=== PATIENT | female | born 1995 | race Caucasian/White ===

== ENCOUNTER → 2018-07-06 09:16 | Outpatient (CLI) | payer OTHER, SELFPAY ==
[2018-07-06 09:37] LABS: Add Manual Diff / Slide Review NO; Basophils Percent Auto 0.2 % (0-2); Eosinophils Percent Auto 1.1 % (2-4); Hematocrit 39.2 % (36-46); Hemoglobin 13.4 g/dL (12.0-16.0); Lymphocytes Percent Auto 33.6 % (25-40); Mean Corpuscular HGB Conc 34.1 % (30-36); Mean Corpuscular Hemoglobin 28.7 PG (26-34); Mean Corpuscular Volume 84.3 fL (80-100); Monocytes Percent Auto 7.2 % (3-14); Neutrophils Absolute Auto 4600 /uL (3000-5900); Neutrophils Percent Auto 57.9 % (50-75); Platelet Count 228 X10^3/uL (150-400); Red Blood Cell Count 4.65 X10^6/uL (4.0-5.2)
[2018-07-06 09:46] LABS: BUN Creatinine Ratio 17.1 (6-22); Blood Urea Nitrogen 12 mg/dL (7-17); Calcium 9.6 mg/dL (8.4-10.2); Carbon Dioxide 27 mmol/L (22-32); Chloride 100 mmol/L (98-107); Estimated Glomerular Filt Rate > 60.0 mL/min (>60); Glucose 103 mg/dL (70-100); HEMOLYSIS < 15 (0-50); Sodium 141 mmol/L (137-145)
[2018-07-06 10:44] LABS: Thyroid Stimulating Hormone 0.54 uIU/mL (0.47-4.68)
== END ==
PROVIDERS: PCP Family Medicine; Visit Provider Family Medicine
DX: R53.83 Other fatigue (principal)
CPT/HCPCS: 36415; 80048; 84443; 85025

== ENCOUNTER 2018-07-20 07:05 | Emergency (ER) | payer OTHER, SELFPAY ==
[2018-07-20 07:10] VITALS: BP 100/47; PULSE 75; RESP 24; TEMP 36.4; O2SAT 100; BMI 36.6
[2018-07-20] MEDS: ONDANSETRON 4 MG/2 ML INJ IV (07:20)
[2018-07-20] MEDS: KETOROLAC 60 MG/2 ML VIAL 30 MG IV (07:20)
[2018-07-20] MEDS: LORazepam 2 MG/ML SYRINGE 0.5 MG IV (07:31)
[2018-07-20 07:42] LABS: Add Manual Diff / Slide Review NO; Basophils Percent Auto 0.3 % (0-2); Hematocrit 40.3 % (36-46); Hemoglobin 13.7 g/dL (12.0-16.0); Lymphocytes Percent Auto 30.8 % (25-40); Mean Corpuscular HGB Conc 33.9 % (30-36); Mean Corpuscular Hemoglobin 28.9 PG (26-34); Mean Corpuscular Volume 85.3 fL (80-100); Monocytes Percent Auto 4.3 % (3-14); Neutrophils Absolute Auto 5700 /uL (3000-5900); Neutrophils Percent Auto 63.6 % (50-75); Platelet Count 226 X10^3/uL (150-400); Red Blood Cell Count 4.73 X10^6/uL (4.0-5.2); Red Cell Distribution Width 13.3 % (11.6-14.8); White Blood Cell Count 8.9 X10^3/uL (4.5-11.0)
[2018-07-20 07:52] LABS: BUN Creatinine Ratio 12.5 (6-22); Blood Urea Nitrogen 10 mg/dL (7-17); Calcium 9.9 mg/dL (8.4-10.2); Carbon Dioxide 22 mmol/L (22-32); Chloride 105 mmol/L (98-107); Estimated Glomerular Filt Rate > 60.0 mL/min (>60); Glucose 135 mg/dL (70-100); HEMOLYSIS < 15 (0-50); Potassium 3.7 mmol/L (3.4-5.1); Sodium 143 mmol/L (137-145)
[2018-07-20] MEDS: HYDROMORPHONE 1 MG INJ 0.5 MG IV (08:10)
--- NOTE | 2018-07-20 08:10 | ED_ITS ---
HPI - Female Genitourinary General Chief complaint: Urogenital-Female Stated complaint: Renal Stones Time Seen by Provider: 07/20/18 07:15 Source: patient Mode of arrival: ambulatory Limitations: no limitations History of Present Illness HPI Narrative: Patient is a 23-year-old female presents with left flank pain it has been ongoing for 1 hr it woke her from her sleep. She does have a history of kidney stones this feels similar. However the pain is much worse. She feels nauseous at times no vomiting. She has not had fever. She was feeling well in the evening. She did receive 10 mg of morphine by EMS. She continues to be in severe pain. Related Data Previous Rx's Medication Instructions Recorded hydrocodone 5 mg-acetaminophen 325 1 - 2 tab PO Q6-8H PRN #30 tab 03/30/18 mg tablet dextroamphetamine-amphetamine 10 10 mg PO DAILY PRN #30 tab 07/06/18 mg tablet lisdexamfetamine 60 mg capsule 60 mg PO QDAY #30 cap 07/06/18 Allergies Allergy/AdvReac Type Severity Reaction Status Date / Time omeprazole [OMEPRAZOLE] Allergy Severe STOMACH Verified 07/20/18 07:21 CRAMPING, NAUSEA latex [LATEX] Allergy Mild Verified 07/20/18 07:21 nickel [NICKEL] Allergy Mild Verified 07/20/18 07:21 paper tape AdvReac Mild itchy Uncoded 07/20/18 07:21 Review of Systems Review of Systems All systems reviewed & are unremarkable except as noted in HPI and below Constitutional Denies chills, Denies fever(s), Denies lethargy and Denies weakness Cardiovascular Denies chest pain, Denies irregular heart rhythm, Denies lightheadedness, Denies palpitations, Denies dyspnea, Denies dyspnea on exertion and Denies orthopnea Respiratory Denies cough, Denies dyspnea, Denies dyspnea on exertion and Denies wheezing Gastrointestinal Gastrointestinal: Denies abdominal pain, Denies change in bowel habits, Denies diarrhea, Denies nausea and Denies vomiting Musculoskeletal Denies back pain, Denies muscle weakness, Denies numbness and Denies tingling Integumentary/Breasts Denies pruritus, Denies erythema, Denies rash and Denies wounds Neurologic Denies numbness, Denies tingling and Denies weakness Endocrine Denies palpitations Allergic/Immunologic Denies wheezing [facility] Medical History Migraines (Chronic) Acne (Chronic) Anxiety (Chronic 03/2006) Chronic headaches (Chronic) Depression (Chronic 05/04/07) Factor V Leiden (Chronic) Hip pain (Chronic 2006) Hip tendonitis (Chronic 2006) Keratosis pilaris (Chronic 01/21/09) Kidney stones (Resolved 02/26/13) Surgical History Anesthesia (Resolved) History of third molar tooth extraction (Resolved) Family History Father Age: 60 Hypertension High cholesterol Grandfather Cancer Lung cancer Smoking Grandmother No problems noted. Mother No problems noted. Grandfather Complication of surgery Grandmother No problems noted. Social History Smoking Status: Never smoker Exam Initial Vital Signs Initial Vital Signs: Vital Signs Temperature 97.6 F 07/20/18 07:10 Pulse Rate 75 07/20/18 07:10 Respiratory Rate 24 07/20/18 07:10 Blood Pressure 100/47 L 07/20/18 07:10 Pulse Oximetry 100 07/20/18 07:10 GENERAL: In pain, can't get comfortable crying HEENT: Head atraumatic,EOMI, pupils reactive, CARDIOVASCULAR: Regular rate and rhythm without murmurs, rubs or gallops. RESPIRATORY: Breath sounds equal bilaterally, no wheezes rales or rhonchi. ABDOMEN: Soft, nontender. Normoactive bowel sounds all 4 quadrants. No guarding or rebound. : Left flank pain EXTREMITIES: Normal range of motion, no clubbing or edema. Neurovascularly intact NEUROLOGICAL: Alert and oriented x4.Normal gait and speech SKIN: Warm, dry, no laceration, no petechiae, no rashes or lesions. Course Orders Ordered: ED Orders 07/20/18 07:30 Basic Metabolic Panel Stat Complete Blood Count AUTO DIFF Stat Test Serum,Qual Stat 07/20/18 09:06 CT kidney ureter bladder (KUB) Stat 07/20/18 10:17 Urine Microscopic Stat Discontinued Medications Hydromorphone HCl (Dilaudid) 0.5 mg IV NOW ONE Stop: 07/20/18 08:05 Last Admin: 07/20/18 08:10 Dose: 0.5 mg Sodium Chloride (Normal Saline 0.9%) 1,000 mls @ 1,000 mls/hr IV BOLUS ONE Stop: 07/20/18 09:03 Last Infusion: 07/20/18 09:26 Dose: 0 mls/hr Admin: 07/20/18 08:24 Dose: 1,000 mls/hr Lidocaine HCl 7.5 ml/ Sodium (Chloride) 57.5 mls @ 345 mls/hr IV NOW ONE Stop: 07/20/18 08:37 Last Infusion: 07/20/18 09:11 Dose: 0 mls/hr Admin: 07/20/18 08:53 Dose: 345 mls/hr Ketorolac Tromethamine (Toradol) 30 mg IV NOW ONE Stop: 07/20/18 07:06 Last Admin: 07/20/18 07:20 Dose: 30 mg Lorazepam (Ativan) 0.5 mg IV NOW ONE Stop: 07/20/18 07:28 Last Admin: 07/20/18 07:31 Dose: 0.5 mg Ondansetron HCl (Zofran) 4 mg IV NOW ONE Stop: 07/20/18 07:06 Last Admin: 07/20/18 07:20 Dose: 4 mg Vital Signs - 8 hr 07/20/18 07:10 07/20/18 10:00 07/20/18 10:38 Temperature 97.6 F Pulse Rate 75 56 L 68 Respiratory Rate 24 16 Blood Pressure 100/47 L Blood Pressure [Left Arm] 101/77 111/68 Pulse Oximetry 100 95 100 07/20/18 10:45 Temperature 98.0 F Pulse Rate Respiratory Rate Blood Pressure Blood Pressure [Left Arm] Pulse Oximetry MDM - Female Genitourinary Lab Data Attestation: I reviewed the patient's lab results. Result diagrams: 07/20/18 07:30 07/20/18 07:30 Lab Results 07/20/18 07/20/18 07/20/18 Range/Units 07:30 07:30 07:30 WBC 8.9 (4.5-11.0) X10^3/uL RBC 4.73 (4.0-5.2) X10^6/uL Hgb 13.7 (12.0-16.0) g/dL Hct 40.3 (36-46) % MCV 85.3 (80-100) fL MCH 28.9 (26-34) PG MCHC 33.9 (30-36) % RDW 13.3 (11.6-14.8) % Plt Count 226 (150-400) X10^3/uL Neut % (Auto) 63.6 (50-75) % Lymph % (Auto) 30.8 (25-40) % [place] % (Auto) 4.3 (3-14) % Eos % (Auto) 1.0 L (2-4) % Baso % (Auto) 0.3 (0-2) % Neut # (Auto) 5700 (5571-5339) /uL Sodium 143 (137-145) mmol/L Potassium 3.7 (3.4-5.1) mmol/L Chloride 105 (98-107) mmol/L Carbon Dioxide 22 (22-32) mmol/L BUN 10 (7-17) mg/dL Creatinine 0.80 (0.52-1.04) mg/dL Estimated GFR > 60.0 (>60) mL/min BUN/Creatinine Ratio 12.5 (6-22) Glucose 135 H (70-100) mg/dL Calcium 9.9 (8.4-10.2) mg/dL Serum , Qual Negative (Negative) Urine RBC (0-5/HPF) Urine WBC (0-5/HPF) Ur Squamous Epith Cells Amorphous Sediment Urine Bacteria (None) Urine Mucus (Negative) Ur Culture Indicated? Micro UA Comment 07/20/18 Range/Units 10:17 WBC (4.5-11.0) X10^3/uL RBC (4.0-5.2) X10^6/uL Hgb (12.0-16.0) g/dL Hct (36-46) % MCV (80-100) fL MCH (26-34) PG MCHC (30-36) % RDW (11.6-14.8) % Plt Count (150-400) X10^3/uL Neut % (Auto) (50-75) % Lymph % (Auto) (25-40) % [place]clean % (Auto) (3-14) % Eos % (Auto) (2-4) % Baso % (Auto) (0-2) % Neut # (Auto) (6309-7572) /uL Sodium (137-145) mmol/L Potassium (3.4-5.1) mmol/L Chloride (98-107) mmol/L Carbon Dioxide (22-32) mmol/L BUN (7-17) mg/dL Creatinine (0.52-1.04) mg/dL Estimated GFR (>60) mL/min BUN/Creatinine Ratio (6-22) Glucose (70-100) mg/dL Calcium (8.4-10.2) mg/dL Serum , Qual (Negative) Urine RBC 5-10/hpf H (0-5/HPF) Urine WBC 10-30/hpf H (0-5/HPF) Ur Squamous Epith Cells 10-30 /hpf H Amorphous Sediment 2+ Urine Bacteria None seen (None) Urine Mucus 2+ H (Negative) Ur Culture Indicated? Cult not indicated Micro UA Comment Not Reportable Urine Dip Bedside Urine Glucose Negative Bedside Urine Bilirubin - Negative Bedside Urine Ketone ++ 40 Urine Specific [place] 1.030 Bedside Urine Occult Blood +++ Bedside Urine pH 6.0 Bedside Urine Protein + 30 Bedside Urine Urobilinogen - Negative Bedside Urine Nitrite - Negative Bedside Urine Leukocytes + [address] scan - abdomen: Radiologist's impression: PROCEDURE: CT KIDNEY URETER BLADDER (KUB) INDICATIONS: left flank pain TECHNIQUE: Noncontrast 5 mm thick sections acquired from the diaphragms to the symphysis. 5 mm thick coronal and sagittal reformats were then performed. For radiation dose reduction, the following was used: automated exposure control, adjustment of mA and/or kV according to patient size. COMPARISON: None. FINDINGS: Image quality: Excellent. Lung bases: Lung bases are clear. Heart size is normal. Urinary system: Both kidneys are normal in size. The 3 mm calculus is evident within the mid right kidney. There may also be punctate calculi on the left. There is borderline hydronephrosis on the left. There is no hydronephrosis on the right. No ureteral calculi are evident, bilaterally. No perinephric edema is appreciated. The urinary bladder is decompressed and subsequently not well evaluated. No bladder calculi are identified. Other solid organs: Liver is normal in size. Gallbladder is not enlarged or inflamed. Pancreas is normal in contours. Spleen is normal in size. No adrenal nodules. Peritoneum and bowel: Unenhanced bowel loops demonstrate normal wall thickness and caliber. No free fluid or air. No loculated fluid collections are evident. Moderate residual stool is seen within the proximal colon. The appendix is well- visualized and normal. Nodes and vessels: No retroperitoneal or mesenteric adenopathy by size criteria. Aorta and inferior vena cava are normal in caliber. Pelvis: No free pelvic fluid. No inguinal hernias or adenopathy. The uterus and ovaries are not enlarged. No loculated fluid collections or free air is evident. Bones: No suspicious bony lesions. No vertebral body compression fractures. IMPRESSION: 1. Mild left-sided hydronephrosis and prominence of the left ureter may be related to a recently passed left renal calculus. No ureteral calculi are evident. 2. Nonobstructing right renal calculus. Dictated by: Alex Khan M.D. on 07/20/2018 at 8:18 MDM Narrative Medical decision making narrative: Patient continues to be in severe pain cannot get comfortable. She is given Toradol. Continues to be in pain. She is given Ativan could she also seems to be quite a bit anxious. The Ativan does seem to help however her pain returned is given Dilaudid. I discussed with both mom and patient would like to try to avoid CT due to radiation. Her pain is on the left side not likely to be appendicitis. Or other causes However she continues to be in quite severe pain. CT ordered The pain is much better after lidocaine she has actually not had any further episodes. CT shows a likely recently passed stone she also has blood in her urine consistent with a kidney stone. No sign of infection. Discharge Plan Departure Patient Disposition: Home Clinical Impression: Kidney stone on left side Discharge Date/Time: 07/20/18 10:45 Interventions: ED Discharge Assessment Last Done: 07/20/18 10:45 Instructions: DI for Kidney Stones Activity Restrictions/Additional Instructions: *You have been diagnosed with kidney stone *What to do: It looks as though he recently passed a kidney stone. You can expect to have some mild flank pain recommend seeing a urologist to determine cause of kidney stone *Continue to take medications as directed Motrin 800 mg every 8 hr needed *Follow up with your primary care provider in 2-3 days *Return to ER if you should have fever, uncontrolled pain or any new, worsening or concerning symptoms Prescriptions: No Action dextroamphetamine-amphetamine 10 mg tablet 10 mg PO DAILY PRN (Reason: Inattention) Qty: 30 RF: 0 lisdexamfetamine [Vyvanse] 60 mg capsule 60 mg PO QDAY Qty: 30 RF: 0 hydrocodone-acetaminophen 5-325 mg tablet 1 - 2 tab PO Q6-8H PRN (Reason: headache) Qty: 30 RF: 0 Referrals: Faith Cyr MD [Primary Care Provider] -
[2018-07-20] MEDS: SODIUM CHLORIDE 0.9% 1,000 ML 1000 ML IV (08:24)
--- NOTE | 2018-07-20 08:40 | PC.NURSE ---
Pt in room, yelling loudly since arrival about pain. Meds given with brief pain relief. Meds IVPB ordered
[2018-07-20 08:43] LABS: Pregnancy Test Serum,Qual Negative (Negative)
[2018-07-20] MEDS: SODIUM CHLORIDE 0.9% IV (08:53)
[2018-07-20] MEDS: LIDOCAINE 2% IV (08:53)
--- NOTE | 2018-07-20 09:06 | DI.CT.S_ITS ---
PROCEDURE: CT KIDNEY URETER BLADDER (KUB) INDICATIONS: left flank pain TECHNIQUE: Noncontrast 5 mm thick sections acquired from the diaphragms to the symphysis. 5 mm thick coronal and sagittal reformats were then performed. For radiation dose reduction, the following was used: automated exposure control, adjustment of mA and/or kV according to patient size. COMPARISON: None. FINDINGS: Image quality: Excellent. Lung bases: Lung bases are clear. Heart size is normal. Urinary system: Both kidneys are normal in size. The 3 mm calculus is evident within the mid right kidney. There may also be punctate calculi on the left. There is borderline hydronephrosis on the left. There is no hydronephrosis on the right. No ureteral calculi are evident, bilaterally. No perinephric edema is appreciated. The urinary bladder is decompressed and subsequently not well evaluated. No bladder calculi are identified. Other solid organs: Liver is normal in size. Gallbladder is not enlarged or inflamed. Pancreas is normal in contours. Spleen is normal in size. No adrenal nodules. Peritoneum and bowel: Unenhanced bowel loops demonstrate normal wall thickness and caliber. No free fluid or air. No loculated fluid collections are evident. Moderate residual stool is seen within the proximal colon. The appendix is well-visualized and normal. Nodes and vessels: No retroperitoneal or mesenteric adenopathy by size criteria. Aorta and inferior vena cava are normal in caliber. Pelvis: No free pelvic fluid. No inguinal hernias or adenopathy. The uterus and ovaries are not enlarged. No loculated fluid collections or free air is evident. Bones: No suspicious bony lesions. No vertebral body compression fractures. IMPRESSION: 1. Mild left-sided hydronephrosis and prominence of the left ureter may be related to a recently passed left renal calculus. No ureteral calculi are evident. 2. Nonobstructing right renal calculus. Dictated by: Alex Khan M.D. on 07/20/2018 at 8:18 Approved by: Alex Khan M.D. on 07/20/2018 at 8:30
[2018-07-20 10:00] VITALS: BP 101/77; PULSE 56; RESP 16; O2SAT 95
[2018-07-20 10:22] LABS: Bacteria Urine None Seen
[2018-07-20 10:33] LABS: Amorphous Sediment Urine 2+; Culture Indicated Urine Cult Not Indicated; Mucus Urine 2+ (Negative); RBC Urine 5-10/HPF (0-5/HPF); Squamous Epithelial Cell Urine 10-30 /HPF; WBC Urine 10-30/HPF (0-5/HPF)
[2018-07-20 10:38] VITALS: BP 111/68; PULSE 68; O2SAT 100
[2018-07-20 10:45] VITALS: TEMP 36.7
== END 2018-07-20 10:45 | disposition home or self-care (01) ==
PROVIDERS: Emergency Provider Emergency Medicine; PCP Family Medicine
DX: N20.0 Calculus of kidney (principal)
CPT/HCPCS: 36415; 74176; 80048; 81003; 81015; 84703; 85025; 96361; 96365; 96375; 99283; 99284; J1170; J1885; J2060; J2405

== ENCOUNTER → 2018-08-12 14:15 | Outpatient (CLI) | payer OTHER, SELFPAY ==
[2018-08-12 15:56] LABS: Vitamin D 25 Hydroxy (D3) 60.3 ng/mL (30.0-100.0)
[2018-08-12 16:12] LABS: Testosterone 65.8 ng/dL (5.71-77.0)
[2018-08-12 16:28] LABS: Vitamin B12 645 pg/mL (239-931)
== END ==
PROVIDERS: PCP Family Medicine; Visit Provider Family Medicine
DX: L68.9 Hypertrichosis, unspecified (principal); F32.9 Major depressive disorder, single episode, unspecified; F41.9 Anxiety disorder, unspecified; G43.909 Migraine, unspecified, not intractable, without status migrainosus; R53.83 Other fatigue
CPT/HCPCS: 36415; 82306; 82607; 84403

== ENCOUNTER 2019-04-18 08:30 | Emergency (ER) | payer OTHER, MEDICAID, SELFPAY ==
[2019-04-18 08:44] VITALS: BP 140/81; PULSE 107; RESP 16; TEMP 36.6; O2SAT 100; BMI 33.7
--- NOTE | 2019-04-18 08:45 | ED.FEMALEGU ---
HPI - Female Genitourinary General Chief complaint: Urogenital-Female Stated complaint: Thinks she has bad kidney infection Time Seen by Provider: 04/18/19 08:45 Source: patient and family (Father) Mode of arrival: ambulatory Limitations: no limitations History of Present Illness HPI Narrative: This is a 24-year-old female comes to the emergency department with complaint of bilateral flank pain and suprapubic pain. Patient thinks that she might have a bladder infection. States she has had kidney stones in the past kind of started on the right side but now it is on both sides. She states that this pain is little bit different than when she had kidney stones. She has not had any fevers, she denies any nausea or vomiting. She denies any new changes to bowel movements but chronically has diarrhea secondary to metformin which she takes for PCOS. Patient has noticed that she has increased pain when she urinates, she has not noticed any sense of frequency or incomplete voiding. She denies any new vaginal bleeding or discharge. She takes Vyvanse and medications for mental health but denies any other medical issues. Denies any prior surgeries. She does smoke, drinks alcohol and denies any recent illicit but occasional THC. Related Data Home Medications Medication Instructions Recorded Confirmed multivitamin with minerals-folic mcg PO tab 11/03/18 04/04/19 acid 200 mcg chewable tablet cholecalciferol (vitamin D3) 2,000 6,000 unit PO DAILY cap 04/04/19 04/04/19 unit capsule Previous Rx's Medication Instructions Recorded triamcinolone acetonide 0.1 % 1 applictn TOP BID #15 gram 09/27/18 topical ointment dextroamphetamine-amphetamine 10 See Rx Instructions .ROUTE 02/28/19 mg tablet .COMPLEX PRN #30 tab lisdexamfetamine 60 mg capsule 60 mg PO QDAY #30 cap 02/28/19 hydrocodone 5 mg-acetaminophen 325 1 - 2 tab PO Q6-8H PRN #10 tab 03/21/19 mg tablet clonidine HCl 0.1 mg tablet 0.1 mg PO BEDTIME #30 tab 04/04/19 metformin 500 mg tablet 500 mg PO BID #180 tab 04/11/19 ciprofloxacin HCl 500 mg PO BID #20 tab 04/18/19 Allergies Allergy/AdvReac Type Severity Reaction Status Date / Time omeprazole [OMEPRAZOLE] Allergy Severe STOMACH Verified 03/21/19 15:24 CRAMPING, NAUSEA latex [LATEX] Allergy Mild Verified 03/21/19 15:24 nickel [NICKEL] Allergy Mild Verified 03/21/19 15:24 adhesive tape AdvReac Mild ITCHY - Verified 04/18/19 09:17 PAPER TAPE Review of Systems Review of Systems ROS Unobtainable: All systems reviewed & are unremarkable except as noted in HPI and below Constitutional Denies chills, Denies fever(s), Denies lethargy and Denies weakness Cardiovascular Denies chest pain and Denies dyspnea Respiratory Denies dyspnea Gastrointestinal Gastrointestinal: Reports abdominal pain (Suprapubic), Denies melena, Denies hematochezia, Denies change in bowel habits, Reports diarrhea (Chronically), Denies nausea and Denies vomiting Genitourinary Reports as per HPI, Denies abnormal menses, Denies abnormal vaginal bleeding, Denies hematuria, Reports dysuria, Reports pelvic pain, Reports flank pain (Right greater than left), Denies urinary incontinence, Denies urinary hesitancy, Denies urinary urgency, Denies vaginal discharge and Denies vaginal odor Integumentary/Breasts Denies rash Neurologic Denies weakness [facility] Medical History Migraines (Chronic) Acne (Chronic) Anxiety (Chronic 03/2006) Chronic headaches (Chronic) Depression (Chronic 05/04/07) Factor V Leiden (Chronic) Hip pain (Chronic 2006) Hip tendonitis (Chronic 2006) Keratosis pilaris (Chronic 01/21/09) Kidney stones (Resolved 02/26/13) Surgical History Anesthesia (Resolved) History of third molar tooth extraction (Resolved) Family History Father Age: 61 Hypertension High cholesterol Grandfather Cancer Lung cancer Smoking Grandmother No problems noted. Mother No problems noted. Grandfather Complication of surgery Grandmother No problems noted. Social History Smoking Status: Current some day smoker alcohol intake: current substance use type: does not use Family History Father Age: 61 Hypertension High cholesterol Grandfather Cancer Lung cancer Smoking Grandmother No problems noted. Mother No problems noted. Grandfather Complication of surgery Grandmother No problems noted. Social History Smoking Status: Current some day smoker alcohol intake: current substance use type: does not use Exam Narrative Exam Narrative: GENERAL: Alert and oriented x three, obese, well-appearing female in mild distress HEENT: Head normocephalic, atraumatic, EOMI, pupils reactive, face symmetric, moist mucous membranes NECK: Supple, full range of motion CARDIOVASCULAR: Regular rate and rhythm without murmurs, rubs or gallops. RESPIRATORY: Breath sounds equal bilaterally, no wheezes rales or rhonchi. ABDOMEN: Soft, mild suprapubic tenderness. Normoactive bowel sounds all 4 quadrants. No guarding or rebound, rigidity, no mass. : No CVA tenderness EXTREMITIES: Normal range of motion, no clubbing or edema. Neurovascularly intact NEUROLOGICAL: Cranial nerves II through XII grossly intact. Moving all extremities SKIN: Warm, dry, no petechiae, no rashes or lesions. Initial Vital Signs Initial Vital Signs: Vital Signs Temperature 97.8 F 04/18/19 08:44 Pulse Rate 107 H 04/18/19 08:44 Respiratory Rate 16 04/18/19 08:44 Blood Pressure 140/81 04/18/19 08:44 Pulse Oximetry 100 04/18/19 08:44 Course Orders Ordered: Discontinued Medications Ketorolac Tromethamine (Toradol) 60 mg IM NOW ONE Stop: 04/18/19 09:15 Last Admin: 04/18/19 09:23 Dose: 60 mg Vital Signs - 8 hr 04/18/19 08:44 Temperature 97.8 F Pulse Rate 107 H Respiratory Rate 16 Blood Pressure 140/81 Pulse Oximetry 100 MDM - Female Genitourinary Lab Data Lab Results 04/18/19 04/18/19 Range/Units 08:40 08:40 Urine Color [place] Urine Appearance Slightly cloudy Urine pH (4.5-8.0) Ur Specific [place] 1.030 (1.000-1.035) Urine Protein Not Reportable Urine Glucose (UA) Negative (Negative) g/dL Urine Ketones Not Reportable Urine Occult Blood Not Reportable Urine Nitrate Not Reportable Urine Bilirubin (NEGATIVE) Urine Urobilinogen Not Reportable Ur Leukocyte Esterase Not Reportable Urine RBC 5-10/hpf H (0-5/HPF) Urine WBC 30-100/hpf H (0-5/HPF) Ur Squamous Epith Cells >30 /hpf H (0-5/HPF) Urine Bacteria Moderate (10-30) H (None) Urine Mucus 1+ H (Negative) Ur Culture Indicated? Culture not indicate Micro UA Comment Urine Test Negative (Negative) MDM Narrative Medical decision making narrative: Discussed with patient her urinalysis shows WBCs leukocyte esterase but she also has quite a bit of squamous epithelials. Was sent for urine culture but could be contaminated. We discussed possibly doing a pelvic exam and she defer doing this at this time although we did discuss that this could potentially be a cause of her symptoms. We also discussed doing so further workup with lab work and potentially ultrasound but patient defers. Patient has been taking azo as well as morphine tablets that she has at home. She states she still has a few available to her. Discussed that she can start antibiotics under the assumption that she has a UTI possibly turning into a pyelonephritis but that she should return if she has worsening as we have not fully evaluated her. Patient is comfortable with the plan. We discussed doing something for pain and trying a dose of Toradol here. Discharge Plan Departure Patient Disposition: Home Clinical Impression: UTI (urinary tract infection) Qualifiers: Urinary tract infection type: acute cystitis Discharge Date/Time: 04/18/19 09:39 Interventions: ED Discharge Assessment Last Done: 04/18/19 09:38 Instructions: DI for Urinary Tract Infection (UTI) Activity Restrictions/Additional Instructions: Follow up with your primary care in the next 24-48 hours if your symptoms are not improving. Call for an appointment. Take antibiotics until gone. Start them this morning. Your prescription was sent to [facility] in [place]. You may continue your home pain medications. You may also take ibuprofen with, you may take up to 800 mg every 8 hours as needed. You may continue Azo if you find it helpful. Return to the emergency department for fevers greater than 100.4 F, persistent vomiting, rapidly worsening pain, lightheadedness, passing out, black or bloody stools, new vaginal bleeding or discharge or other new or concerning symptoms. Prescriptions: New ciprofloxacin HCl 500 mg tablet 500 mg PO BID Qty: 20 RF: 0 No Action cholecalciferol (vitamin D3) 2,000 unit capsule 6,000 unit PO DAILY RF: 0 clonidine HCl 0.1 mg tablet 0.1 mg PO BEDTIME Qty: 30 RF: 1 dextroamphetamine-amphetamine 10 mg tablet See Rx Instructions .ROUTE .COMPLEX PRN (Reason: Inattention) Qty: 30 RF: 0 Vyvanse 60 mg capsule 60 mg PO QDAY Qty: 30 RF: 0 hydrocodone-acetaminophen 5-325 mg tablet 1 - 2 tab PO Q6-8H PRN (Reason: headache) Qty: 10 RF: 0 metformin 500 mg tablet 500 mg PO BID Qty: 180 RF: 1 triamcinolone acetonide 0.1 % ointment 1 applictn TOP BID Qty: 15 RF: 2 Women's Multivitamin Gummies 200 mcg tablet,chewable PO RF: 0 Referrals: Faith Cyr MD [Primary Care Provider] -
[2019-04-18 08:56] LABS: Pregnancy Test Urine Negative (Negative)
[2019-04-18 08:57] LABS: Appearance Urine UA Slightly Cloudy; Color Urine UA ORANGE
[2019-04-18 08:58] LABS: Glucose Urine UA NEGATIVE (Negative)
[2019-04-18 09:06] LABS: Bacteria Urine Moderate (10-30); Mucus Urine 1+ (Negative); RBC Urine 5-10/HPF (0-5/HPF); Squamous Epithelial Cell Urine >30 /HPF (0-5/HPF); WBC Urine 30-100/HPF (0-5/HPF)
[2019-04-18] MEDS: KETOROLAC 60 MG/2 ML VIAL IM (09:23)
--- NOTE | 2019-04-18 09:36 | PC.NURSE ---
Im injection given. Pt tolerated well. DC'd home with steady gait, advised when to return to ED if necessary.
[2019-04-18 09:38] VITALS: BP 123/75; PULSE 79; RESP 15; O2SAT 96
== END 2019-04-18 09:39 | disposition home or self-care (01) ==
PROVIDERS: Emergency Provider Emergency Medicine; PCP Family Medicine
DX: N30.00 Acute cystitis without hematuria (principal)
CPT/HCPCS: 81001; 81025; 87086; 96372; 99282; J1885

== ENCOUNTER 2019-05-06 23:07 | Observation (INO) | payer OTHER, MEDICAID, SELFPAY ==
[2019-05-06 23:15] VITALS: BP 98/60; PULSE 78; RESP 14; O2SAT 97
[2019-05-06 23:16] VITALS: BP 124/67; PULSE 69; RESP 14; TEMP 36.3; O2SAT 97; BMI 34.1
[2019-05-06] MEDS: SODIUM CHLORIDE 0.9% 1,000 ML 1000 ML IV (23:23)
[2019-05-06] MEDS: ACTIVATED CHARCOAL/SORBIT 50 GM/240 ML PO (23:23)
--- NOTE | 2019-05-06 23:24 | PC.NURSE ---
Pt able to drink charcoal solution with frequent prompting from RN
[2019-05-06] MEDS: ONDANSETRON 4 MG/2 ML INJ IV (23:25)
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
[2019-05-06 23:30] LABS: Add Manual Diff / Slide Review NO; Basophils Absolute Auto 0 /uL (0-100); Basophils Percent Auto 0.3 % (0-2); Eosinophils Absolute Auto 100 /uL (0-450); Eosinophils Percent Auto 0.5 % (2-4); Hematocrit 36.7 % (36-46); Hemoglobin 12.2 g/dL (12.0-16.0); Lymphocytes Absolute Auto 3800 /uL (1100-4500); Mean Corpuscular HGB Conc 33.2 % (30-36); Mean Corpuscular Hemoglobin 29.1 PG (26-34); Mean Corpuscular Volume 87.8 fL (80-100); Monocytes Absolute Auto 800 /uL (0-900); Monocytes Percent Auto 6.1 % (3-14); Neutrophils Absolute Auto 8800 /uL (1500-7000); Neutrophils Percent Auto 65.1 % (50-75); Platelet Count 229 X10^3/uL (150-400); Red Blood Cell Count 4.18 X10^6/uL (4.0-5.2); Red Cell Distribution Width 13.5 % (11.6-14.8); White Blood Cell Count 13.4 X10^3/uL (4.5-11.0)
[2019-05-06 23:36] LABS: Pregnancy Test Serum,Qual Negative (Negative)
[2019-05-06 23:47] LABS: Ethanol (ETOH) 125 mg/dL; Lipase 73 U/L (23-300)
[2019-05-06 23:48] LABS: Acetaminophen < 10 ug/mL (10-30); Alanine Aminotransferase 24 IU/L (9-52); Albumin 4.4 g/dL (3.5-5.0); Albumin Globulin Ratio 1.7 (1.0-2.8); Alkaline Phosphatase 51 U/L (38-126); Aspartate Aminotransferase 27 IU/L (14-36); BUN Creatinine Ratio 15.7 (6-22); Bilirubin Total 0.5 mg/dL (0.2-1.3); Blood Urea Nitrogen 11 mg/dL (7-17); Calcium 9.8 mg/dL (8.4-10.2); Carbon Dioxide 22 mmol/L (22-32); Chloride 101 mmol/L (98-107); Estimated Glomerular Filt Rate > 60.0 mL/min (>60); Globulin 2.6 g/dL (1.7-4.1); Glucose 126 mg/dL (70-100); HEMOLYSIS < 15 (0-50); Potassium 3.9 mmol/L (3.4-5.1); Sodium 139 mmol/L (137-145)
[2019-05-07] VITALS (17 sets, daily range): BP systolic 81–105; BP diastolic 37–66; PULSE 48–75; RESP 12–19; TEMP 36.1–36.6; O2SAT 97–100; BMI 34.1
[2019-05-07 00:03] LABS: Ammonia (NH3) < 9.0 umol/L (9-30)
[2019-05-07 00:32] LABS: Bacteria Urine None Seen; RBC Urine None Seen (0-5/HPF); WBC Urine None Seen (0-5/HPF)
[2019-05-07 00:45] LABS: Urine Amphetamines Positive (Negative); Urine Cocaine Negative (Negative); Urine Methamphetamines Negative (Negative); Urine Morphine/Opi cutoff 2000 Negative (Negative); Urine Tetrahydrocannabinol Negative (Negative)
[2019-05-07 00:46] LABS: Urine Barbiturates Negative (Negative); Urine Benzodiazepines Positive (Negative); Urine MDMA Negative (Negative); Urine Methadone Negative (Negative); Urine Oxycodone Negative (Negative); Urine Phencyclidine Negative (Negative); Urine Tricyclic Antidepressant Negative (Negative)
[2019-05-07 00:51] LABS: Appearance Urine UA CLEAR; Bilirubin Urine UA NEGATIVE (NEGATIVE); Color Urine UA YELLOW; Glucose Urine UA NEGATIVE (Negative); Ketones Urine UA NEGATIVE (NEGATIVE); Leukocyte Esterase Urine UA NEGATIVE (NEGATIVE); Nitrite Urine UA NEGATIVE (Negative); Occult Blood Urine UA NEGATIVE (Negative); Protein Urine UA NEGATIVE (Negative); Specific Gravity Urine UA <=1.005 (1.000-1.035); Urobilinogen Urine UA 0.2 E.U./dL (0.2)
[2019-05-07 00:52] LABS: pH Urine UA 5.5 (4.5-8.0)
[2019-05-07 00:58] LABS: Squamous Epithelial Cell Urine 0-1 /HPF (0-5/HPF)
[2019-05-07 00:59] LABS: Culture Indicated Urine Cult Not Indicated
[2019-05-07] MEDS: SODIUM CHLORIDE 0.9% 1,000 ML 150 ML IV ×2 (01:10→08:22)
[2019-05-07 01:35] LABS: Acetaminophen < 10 ug/mL (10-30)
--- NOTE | 2019-05-07 01:38 | PC.NURSE ---
Addendum entered by Quinton Hurtado R.N. 05/07/19 04:52: 0415(addendum) Poison control called for update on pt. 0450: Awake, opens eyes spontaneously. Speech is clear, pt smiles, answers questions appropriately. She is aware that her mother is here with her. Addendum entered by Quinton Hurtado R.N. 05/07/19 04:34: 0415: Vital signs stable. Arousable, is anxious when awake, asking about her car, and wanting hopson catheter removed. She agrees to keep hopson catheter in place until MD comes this morning. Mother at bedside. Original Note: Cabinetmaker Supervisor Note: 0105: Admitted to ICU room 105 from ER, accompanied by mother. Pt transported on youth nutritional monitor and pulse oximeter. IV in place in lt hand. NS started at this time at 150cc/hr. Hopson catheter in place, and patent; urine is clear light yellow. Placed on youth nutritional monitor. Pt is somnolent, arousable but does not open eyes. She has slurred speech but answers questions appropriately. She is oriented to person and place. Pt is on 1:1 observation.
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
[2019-05-07] MEDS: ONDANSETRON 4 MG/2 ML INJ IV (11:35)
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
[2019-05-07] MEDS: SODIUM CHLORIDE 0.9% 500 ML 1000 ML IV (13:36)
[2019-05-07] MEDS: SODIUM CHLORIDE 0.9% 1,000 ML 75 ML IV (13:36)
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
--- NOTE | 2019-05-07 18:09 | PC.NURSE ---
Addendum entered by Angella Corona R.N. 05/07/19 18:33: Per Chayito Botello's note, pt does not meet criteria for involuntary hold. Called and reported this information to Dr. Olson. Per Dr. Olson, pt must sign out as Against Medical Advice. IV site removed. Pt called her mother to come get her. Pt said she needed to wait at front door of hospital for her ride, because it was going to be a ying to get to [facility] to [facility]. Original Note: Teagan note Dr. Olson in to see pt. Pt agreed to stay overnight. At 17:45, pt asked to leave. HR was in 50s, now in 70s, Normal sinus rhythm. Pt alert and oriented X4. B/P104/49 with MAP 74. Assisted pt to bathroom; gait steady, denies dizziness.
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
== END 2019-05-07 18:20 | disposition left against medical advice (07) ==
LOC: ED 23:56 → ICU 05-07 12:49
PROVIDERS: Admitting Provider Family Medicine; Emergency Provider Emergency Medicine; PCP Family Medicine; Visit Provider Family Medicine
DX: T46.5X2A Poisoning by other antihypertensive drugs, intentional self-harm, initial encounter (principal); T51.92XA Toxic effect of unspecified alcohol, intentional self-harm, initial encounter; F41.9 Anxiety disorder, unspecified; F32.9 Major depressive disorder, single episode, unspecified; D68.51 Activated protein C resistance; F17.210 Nicotine dependence, cigarettes, uncomplicated
CPT/HCPCS: 36415; 51701; 71045; 73610; 80053; 80305; 80320; 80329; 81001; 82140; 82962; 83605; 83690; 84443; 84703; 85025; 93005; 96361; 96374; 96376; 99284; 99285; 99291; 99292; G0378; G0480; J2405

== ENCOUNTER → 2019-06-30 09:26 | Outpatient (CLI) | payer OTHER, MEDICAID, SELFPAY ==
[2019-05-07 01:10] VITALS: BMI 34.1
[2019-06-30 10:35] LABS: BUN Creatinine Ratio 12.9 (6-22); Blood Urea Nitrogen 9 mg/dL (7-17); Calcium 9.9 mg/dL (8.4-10.2); Carbon Dioxide 28 mmol/L (22-32); Chloride 101 mmol/L (98-107); Estimated Glomerular Filt Rate > 60.0 mL/min (>60); Glucose 99 mg/dL (70-100); HEMOLYSIS < 15 (0-50); Sodium 138 mmol/L (137-145)
[2019-06-30 10:45] LABS: Vitamin D 25 Hydroxy (D3) 48.6 ng/mL (30.0-100.0)
[2019-06-30 11:02] LABS: Lithium 0.7 mmol/L (0.6-1.2)
== END ==
PROVIDERS: Psychiatry & Neurology Psychiatry; PCP Family Medicine; Visit Provider Family Medicine
DX: Z51.81 Encounter for therapeutic drug level monitoring (principal); R53.83 Other fatigue; F32.9 Major depressive disorder, single episode, unspecified
CPT/HCPCS: 36415; 80048; 80178; 82306

== ENCOUNTER → 2019-09-04 11:46 | Outpatient (CLI) | payer OTHER, MEDICAID, SELFPAY ==
[2019-05-07 01:10] VITALS: BMI 34.1
[2019-09-04 13:47] LABS: Lithium 0.6 mmol/L (0.6-1.2)
[2019-09-04 13:49] LABS: BUN Creatinine Ratio 13.8 (6-22); Blood Urea Nitrogen 11 mg/dL (7-17); Calcium 10.1 mg/dL (8.4-10.2); Carbon Dioxide 28 mmol/L (22-32); Chloride 102 mmol/L (98-107); Estimated Glomerular Filt Rate > 60.0 mL/min (>60); Glucose 94 mg/dL (70-100); HEMOLYSIS < 15 (0-50); Potassium 4.4 mmol/L (3.4-5.1); Sodium 140 mmol/L (137-145)
[2019-09-04 14:17] LABS: Thyroid Stimulating Hormone 0.89 uIU/mL (0.47-4.68)
== END ==
PROVIDERS: PCP Family Medicine; Visit Provider Psychiatry & Neurology Psychiatry
DX: F32.9 Major depressive disorder, single episode, unspecified (principal); F41.9 Anxiety disorder, unspecified; F50.81 Binge eating disorder; F90.9 Attention-deficit hyperactivity disorder, unspecified type; E72.12 Methylenetetrahydrofolate reductase deficiency; Z51.81 Encounter for therapeutic drug level monitoring
CPT/HCPCS: 36415; 80048; 80178; 84439; 84443; 99214

== ENCOUNTER 2019-10-28 08:23 | Emergency (ER) | payer OTHER, MEDICAID, SELFPAY ==
[2019-05-07 01:10] VITALS: BMI 34.1
[2019-10-28 08:25] VITALS: BP 142/90; PULSE 90; RESP 18; TEMP 36.4; O2SAT 98
--- NOTE | 2019-10-28 08:38 | ED_ITS ---
HPI - General Adult General Chief complaint: Urogenital-Female Stated complaint: passing kidney stone Time Seen by Provider: 10/28/19 08:34 Source: patient and family Mode of arrival: Ambulatory History of Present Illness HPI narrative: 24-year-old woman with a history of renal stones, ADHD, bipolar disorder and anxiety presents with acute onset left side flank pain beginning at 6:30a.m. described as severe, sharp, stabbing radiating from the flank down to the groin. She had been in her usual state of normal health until the acute seble n awoke her from sleep. Related Data Home Medications Medication Instructions Recorded Confirmed multivit with min-folic acid 200 See Rx Instructions PO .COMPLEX 05/16/19 10/24/19 mcg chewable tablet tab levonorgestrel 0.15 mg-ethinyl 1 tab PO DAILY 09/04/19 10/24/19 estradiol 0.03 mg tablet 5-hydroxytryptophan (5-HTP) 100 mg 100 mg PO DAILY 09/19/19 10/24/19 capsule ashwagandha PO 09/19/19 10/24/19 levomefolate calcium 15 mg tablet 15 mg PO DAILY 09/19/19 10/24/19 Previous Rx's Medication Instructions Recorded hydrocodone 5 mg-acetaminophen 325 1 tab PO Q4-6H PRN #10 tab 07/17/19 mg tablet lithium carbonate 300 mg capsule 900 mg PO BEDTIME #90 cap 09/20/19 propranolol 20 mg tablet 20 mg PO TID #90 tab 10/03/19 dextroamphetamine-amphetamine 10 See Rx Instructions .ROUTE 10/10/19 mg tablet .COMPLEX PRN #30 tab lisdexamfetamine 60 mg capsule 60 mg PO QDAY #30 cap 10/10/19 zolpidem 5 mg tablet 10 mg PO BEDTIME PRN #60 tab 10/17/19 oxycodone-acetaminophen [Percocet] 1 tab PO Q8H PRN #14 tab 10/28/19 Allergies Allergy/AdvReac Type Severity Reaction Status Date / Time latex [LATEX] Allergy Mild Verified 10/03/19 10:26 nickel [NICKEL] Allergy Mild Verified 10/03/19 10:26 omeprazole [OMEPRAZOLE] AdvReac Severe STOMACH Verified 10/28/19 08:38 CRAMPING, NAUSEA adhesive tape AdvReac Mild ITCHY - Verified 10/03/19 10:26 PAPER TAPE Review of Systems Review of Systems Narrative: Denies ? fever ? cough ? cold ? chest pain ? dyspnea ? orthopnea ? wheezing ? abdominal pain ? change to bowel or bladder habits ? vomiting ? skin changes ? rashes Patient History Medical History Acne (Chronic) Anxiety (Chronic 03/2006) Chronic headaches (Chronic) Depression (Chronic 05/04/07) Factor V Leiden (Chronic) Hip pain (Chronic 2006) Hip tendonitis (Chronic 2006) Keratosis pilaris (Chronic 01/21/09) Kidney stones (Resolved 02/26/13) Migraines (Chronic) Surgical History Anesthesia (Resolved) History of third molar tooth extraction (Resolved) Family History Father Age: 61 Hypertension High cholesterol Grandfather Cancer Lung cancer Smoking Grandmother Obesity Heart disease Dementia Alcohol abuse Mother Obesity Grandfather Complication of surgery Grandmother No problems noted. Social History household members: family Smoking Status: Never smoker alcohol intake: current substance use type: does not use Smoking Status: Never smoker alcohol intake frequency: a few times a month Substance Use Type: does not use, methamphetamine, prescription drug and other Exam Narrative Exam Narrative: General: Dramatic pain behavior and unable to cooperate fully with exam due to severity of pain HEENT: Moist mucous membranes, normal sclera with reactive pupils, Neck: No JVD, supple Respiratory: Lungs are clear to auscultation, no wheezing no rales no rhonchi. Full and symmetrical air movement Cardiac: Regular rate and rhythm no murmurs no bruits Abdomen: Soft nontender good bowel tones, left flank pain Skin: Warm and dry, no rashes Neurologic: Grossly neurologically intact with no obvious asymmetries or abnormalities Extremities: No trauma, well perfused Psych: Cooperative, appropriate insight and affect Initial Vital Signs Initial Vital Signs: Vital Signs Temperature 97.6 F 10/28/19 08:25 Pulse Rate 90 10/28/19 08:25 Respiratory Rate 18 10/28/19 08:25 Blood Pressure 142/90 H 03/07/20 08:25 Pulse Oximetry 98 10/28/19 08:25 Course Orders Ordered: ED Orders 10/28/19 08:45 Complete Blood Count AUTO DIFF Stat Comprehensive Metabolic Panel Stat 10/28/19 10:00 Urine Culture Stat Urine Microscopic Stat 10/28/19 11:31 CT kidney ureter bladder (KUB) Stat Discontinued Medications Hydromorphone HCl (Dilaudid) 0.5 mg IV NOW ONE Stop: 10/28/19 08:37 Last Admin: 10/28/19 08:50 Dose: 0.5 mg Documented by: CESARIO Hydromorphone HCl (Dilaudid) 0.5 mg IV NOW ONE Stop: 10/28/19 10:30 Last Admin: 10/28/19 10:35 Dose: 0.5 mg Documented by: NELY Hydromorphone HCl (Dilaudid) 1 mg IV NOW ONE Stop: 10/28/19 10:54 Last Admin: 10/28/19 10:56 Dose: 1 mg Documented by: NELY Sodium Chloride (Normal Saline 0.9%) 1,000 mls @ 1,000 mls/hr IV BOLUS ONE Stop: 10/28/19 09:35 Last Infusion: 10/28/19 10:36 Dose: 0 mls/hr Documented by: Admin: 10/28/19 08:50 Dose: 1,000 mls/hr Documented by: CESARIO Sodium Chloride (Normal Saline 0.9%) 1,000 mls @ 1,000 mls/hr IV BOLUS ONE Stop: 10/28/19 11:28 Last Infusion: 10/28/19 12:11 Dose: 0 mls/hr Documented by: Admin: 10/28/19 10:35 Dose: 1,000 mls/hr Documented by: NELY Ketorolac Tromethamine (Toradol) 15 mg IV NOW ONE Stop: 10/28/19 08:37 Last Admin: 10/28/19 08:50 Dose: 15 mg Documented by: CESARIO Ondansetron HCl (Zofran) 4 mg IV NOW ONE Stop: 10/28/19 08:37 Last Admin: 10/28/19 08:50 Dose: 4 mg Documented by: CESARIO Oxycodone/Acetaminophen (Percocet 5/325) 1 tab PO NOW ONE Stop: 10/28/19 11:57 Last Admin: 10/28/19 12:28 Dose: 1 tab Documented by: NELY Tamsulosin HCl (Flomax) 0.4 mg PO NOW ONE Stop: 10/28/19 11:57 Last Admin: 10/28/19 12:28 Dose: 0.4 mg Documented by: NELY Vital Signs Vital signs: Vital Signs - 8 hr 10/28/19 08:25 10/28/19 09:22 10/28/19 10:34 Temperature 97.6 F Pulse Rate 90 72 70 Respiratory Rate 18 18 17 Blood Pressure 142/90 H Blood Pressure [Left Arm] 114/70 127/71 Pulse Oximetry 98 99 100 10/28/19 11:00 10/28/19 11:57 Temperature Pulse Rate 64 70 Respiratory Rate 18 Blood Pressure Blood Pressure [Left Arm] 134/78 132/70 Pulse Oximetry 100 99 Medical Decision Making Lab Data Result diagrams: 10/28/19 08:45 10/28/19 08:45 Labs: Lab Results 10/28/19 10/28/19 10/28/19 Range/Units 08:45 08:45 10:00 WBC 10.3 (4.5-11.0) X10^3/uL RBC 4.40 (4.0-5.2) X10^6/uL Hgb 13.0 (12.0-16.0) g/dL Hct 38.6 (36-46) % MCV 87.8 (80-100) fL MCH 29.6 (26-34) PG MCHC 33.7 (30-36) % RDW 12.8 (11.6-14.8) % Plt Count 257 (150-400) X10^3/uL Neut % (Auto) 67.3 (50-75) % Lymph % (Auto) 25.2 (25-40) % Hayes % (Auto) 6.6 (3-14) % Eos % (Auto) 0.7 L (2-4) % Baso % (Auto) 0.2 (0-2) % Neut # (Auto) 6900 (5435-0608) /uL Lymph # (Auto) 2600 (3536-1476) /uL Hayes # (Auto) 700 (0-900) /uL Eos # (Auto) 100 (0-450) /uL Baso # (Auto) 0 (0-100) /uL Sodium 138 (137-145) mmol/L Potassium 4.0 (3.4-5.1) mmol/L Chloride 105 (98-107) mmol/L Carbon Dioxide 21 L (22-32) mmol/L BUN 8 (7-17) mg/dL Creatinine 0.70 (0.52-1.04) mg/dL Estimated GFR > 60.0 (>60) mL/min BUN/Creatinine Ratio 11.4 (6-22) Glucose 111 H (70-100) mg/dL Calcium 10.2 (8.4-10.2) mg/dL Total Bilirubin 0.7 (0.2-1.3) mg/dL AST 29 (14-36) IU/L ALT 25 (<35) IU/L Alkaline Phosphatase 70 (38-126) U/L Total Protein 7.8 (6.3-8.2) g/dL Albumin 4.7 (3.5-5.0) g/dL Globulin 3.1 (1.7-4.1) g/dL Albumin/Globulin Ratio 1.5 (1.0-2.8) Urine RBC 5-10/hpf H (0-5/HPF) Urine WBC 1-5/hpf (0-5/HPF) Ur Squamous Epith Cells 1-5 /hpf (0-5/HPF) Amorphous Sediment 2+ Urine Bacteria Moderate (10-30) H (None) Ur Culture Indicated? Specimen cultured Point of Care Testing Test Results Negative Urine Dip Bedside Urine Glucose Negative Bedside Urine Bilirubin + 1 Bedside Urine Ketone +++ 80 Urine Specific [place] 1.015 Bedside Urine Occult Blood ++ Bedside Urine pH 8.0 Bedside Urine Protein + 30 Bedside Urine Urobilinogen - Negative Bedside Urine Nitrite - Negative Bedside Urine Leukocytes ++ 125 Esterase Point of care testing: Point of Care Testing Test Results Negative Urine Dip Bedside Urine Glucose Negative Bedside Urine Bilirubin + 1 Bedside Urine Ketone +++ 80 Urine Specific [place] 1.015 Bedside Urine Occult Blood ++ Bedside Urine pH 8.0 Bedside Urine Protein + 30 Bedside Urine Urobilinogen - Negative Bedside Urine Nitrite - Negative Bedside Urine Leukocytes ++ 125 Esterase [facility] Narrative Medical decision making narrative: CT scan was done in 2018 diagnosing initial stones. Was trying to avoid initial imaging however pain continues to recur. At this point labs are unremarkable without evidence of infection. Will move to CT scan to see if additional surgical intervention might be required for presumed renal stone Small nonobstructing stone at the left UVJ. Will switch to oral pain medications, tamsulosin until she passes the stone and anticipate discharge home. No evidence of obstruction, renal failure, pyelonephritis or other complicating issues. Safe for home discharge Discharge Plan Departure Patient Disposition: Home Clinical Impression: Ureterolithiasis Discharge Date/Time: 10/28/19 12:53 Instructions: DI for Kidney Stones Activity Restrictions/Additional Instructions: Thank you for coming in You have a 2 mm stone at the and of your ureter just is it is about to drop into your bladder. You should be able to pass this without significant difficulty. You have been given IV Toradol, Zofran Dilaudid and Percocet in the emergency department. You do need to make sure that you are drinking plenty of fluids. You can use 1-2 Percocet to help with pain and till this passes. Percocet is a narcotic and can be addictive so please use care in taking this. It will also make you constipated. Again, make sure that you are drinking plenty of fluids and I would suggest adding a handful of dried fruit like reasons apricots or plums every time you take Percocet to avoid constipation Of note, you have a not other 2 mm stone in the left kidney. It is not blocking or causing any problems at all right now. It may stay there for years and it may decide to work its way out just as the 1 year currently dealing with is. I would recommend that you follow-up with your primary care physician to talk about options for preventing the formation of kidney stones as you have already had so many by the age of 24. I hope you feel better soon Prescriptions: New oxycodone-acetaminophen [Percocet] 5-325 mg tablet 1 tab PO Q8H PRN (Reason: pain) Qty: 14 RF: 0 No Action hydrocodone-acetaminophen 5-325 mg tablet 1 tab PO Q4-6H PRN (Reason: migraine headache) Qty: 10 RF: 0 propranolol 20 mg tablet 20 mg PO TID Qty: 90 RF: 0 levomefolate calcium 15 mg tablet 15 mg PO DAILY RF: 0 5-hydroxytryptophan (5-HTP) 100 mg capsule 100 mg PO DAILY RF: 0 ashwagandha PO RF: 0 levonorgestrel-ethinyl estrad 0.15-0.03 mg tablet 1 tab PO DAILY RF: 0 lithium carbonate 300 mg capsule 900 mg PO BEDTIME Qty: 90 RF: 1 Vyvanse 60 mg capsule 60 mg PO QDAY Qty: 30 RF: 0 dextroamphetamine-amphetamine 10 mg tablet See Rx Instructions .ROUTE .COMPLEX PRN (Reason: Inattention) Qty: 30 RF: 0 zolpidem 5 mg tablet 10 mg PO BEDTIME PRN (Reason: insomnia) Qty: 60 RF: 0 Women's Multivitamin Gummies 200 mcg tablet,chewable See Rx Instructions PO .COMPLEX RF: 0 Referrals: Faith Cyr MD [Primary Care Provider] -
[2019-10-28] MEDS: HYDROMORPHONE 0.5 MG INJ IV ×2 (08:50→10:35)
[2019-10-28] MEDS: ONDANSETRON 4 MG/2 ML INJ IV (08:50)
[2019-10-28] MEDS: SODIUM CHLORIDE 0.9% 1,000 ML 1000 ML IV ×2 (08:50→10:35)
[2019-10-28] MEDS: KETOROLAC 60 MG/2 ML VIAL 15 MG IV (08:50)
--- NOTE | 2019-10-28 09:04 | PC.NURSE ---
upon arrival to [facility], pt crying with pain/ hyperventilating . mother at side
[2019-10-28 09:22] VITALS: BP 114/70; PULSE 72; RESP 18; O2SAT 99
[2019-10-28 10:34] VITALS: BP 127/71; PULSE 70; RESP 17; O2SAT 100
[2019-10-28 10:45] LABS: Add Manual Diff / Slide Review NO; Basophils Absolute Auto 0 /uL (0-100); Basophils Percent Auto 0.2 % (0-2); Eosinophils Absolute Auto 100 /uL (0-450); Eosinophils Percent Auto 0.7 % (2-4); Hematocrit 38.6 % (36-46); Lymphocytes Absolute Auto 2600 /uL (1100-4500); Lymphocytes Percent Auto 25.2 % (25-40); Mean Corpuscular HGB Conc 33.7 % (30-36); Mean Corpuscular Hemoglobin 29.6 PG (26-34); Mean Corpuscular Volume 87.8 fL (80-100); Monocytes Absolute Auto 700 /uL (0-900); Monocytes Percent Auto 6.6 % (3-14); Neutrophils Absolute Auto 6900 /uL (1500-7000); Neutrophils Percent Auto 67.3 % (50-75); Platelet Count 257 X10^3/uL (150-400); Red Cell Distribution Width 12.8 % (11.6-14.8); White Blood Cell Count 10.3 X10^3/uL (4.5-11.0)
[2019-10-28 10:47] LABS: Alanine Aminotransferase 25 IU/L (<35); Albumin 4.7 g/dL (3.5-5.0); Albumin Globulin Ratio 1.5 (1.0-2.8); Alkaline Phosphatase 70 U/L (38-126); Aspartate Aminotransferase 29 IU/L (14-36); BUN Creatinine Ratio 11.4 (6-22); Bilirubin Total 0.7 mg/dL (0.2-1.3); Blood Urea Nitrogen 8 mg/dL (7-17); Calcium 10.2 mg/dL (8.4-10.2); Carbon Dioxide 21 mmol/L (22-32); Chloride 105 mmol/L (98-107); Estimated Glomerular Filt Rate > 60.0 mL/min (>60); Globulin 3.1 g/dL (1.7-4.1); Glucose 111 mg/dL (70-100); HEMOLYSIS < 15 (0-50); Sodium 138 mmol/L (137-145); Total Protein 7.8 g/dL (6.3-8.2)
[2019-10-28] MEDS: HYDROMORPHONE 1 MG INJ IV (10:56)
[2019-10-28 11:00] VITALS: BP 134/78; PULSE 64; O2SAT 100
[2019-10-28 11:00] LABS: Amorphous Sediment Urine 2+; Bacteria Urine Moderate (10-30); Culture Indicated Urine Specimen Cultured; RBC Urine 5-10/HPF (0-5/HPF); Squamous Epithelial Cell Urine 1-5 /HPF (0-5/HPF); WBC Urine 1-5/HPF (0-5/HPF)
--- NOTE | 2019-10-28 11:31 | DI.CT.S_ITS ---
PROCEDURE: CT KIDNEY URETER BLADDER (KUB) INDICATIONS: Presumed renal stone, uncontrolled pain TECHNIQUE: Noncontrast 5 mm thick sections acquired from the diaphragms to the symphysis. 5 mm thick coronal and sagittal reformats were then performed. For radiation dose reduction, the following was used: automated exposure control, adjustment of mA and/or kV according to patient size. COMPARISON: [facility], CT, CT KIDNEY URETER BLADDER (KUB), 07/20/2018, 8:51. FINDINGS: Image quality: Excellent. Lung bases: Lung bases are clear. Heart size is normal. Urinary system: Both kidneys are normal in size. A nonobstructing 2 mm calculus is present within the midpole of the left kidney. No right hydronephrosis or nephrolithiasis. No right hydroureter or ureterolithiasis. There is mild left hydronephrosis and hydroureter. A 2 mm calculus is present within the left ureterovesicular junction (series 2, image 79). The bladder is partially fluid-filled. No bladder calculi. The uterus and ovaries are grossly unremarkable. Other solid organs: Liver is normal in size. Gallbladder is unremarkable. Pancreas is normal in contours. Spleen is normal in size. No adrenal nodules. Peritoneum and bowel: Unenhanced bowel loops demonstrate normal wall thickness and caliber. The appendix is thin walled and gas filled. No free fluid or air. Nodes and vessels: No retroperitoneal or mesenteric adenopathy by size criteria. Aorta and inferior vena cava are normal in caliber. Abdominal wall: No ventral hernias. Pelvis: No free pelvic fluid. No inguinal hernias or adenopathy. Bones: No suspicious bony lesions. No vertebral body compression fractures. IMPRESSION: 1. Left ureterolithiasis if ureterovesicular junction and mild left hydronephrosis. 2. Nonobstructive left nephrolithiasis. 3. Normal appendix. These findings were discussed with Dr. Contreras at 10:55 AM on 10/28/19 [place] time. Dictated by: Michelle Santos M.D. on 10/28/2019 at 10:50 Approved by: Michelle Santos M.D. on 10/28/2019 at 10:56
[2019-10-28 11:57] VITALS: BP 132/70; PULSE 70; RESP 18; O2SAT 99
[2019-10-28] MEDS: TAMSULOSIN 0.4 MG CAPSULE PO (12:28)
[2019-10-28] MEDS: OXYCODONE/ACETAMINOPHEN 5/325 TABLET 1 TAB PO (12:28)
== END 2019-10-28 12:53 | disposition home or self-care (01) ==
PROVIDERS: Emergency Provider Emergency Medicine; PCP Family Medicine
DX: N20.1 Calculus of ureter (principal); Z87.442 Personal history of urinary calculi
CPT/HCPCS: 36415; 74176; 80053; 81003; 81015; 81025; 85025; 87086; 96361; 96374; 96375; 96376; 99284; J1170; J1885; J2405

== ENCOUNTER → 2019-11-22 17:17 | Outpatient (CLI) | payer OTHER, MEDICAID, SELFPAY ==
[2019-05-07 01:10] VITALS: BMI 34.1
[2019-11-22 18:59] LABS: Urine N gonorrhoeae NOT DETECTED
[2019-11-22 19:13] LABS: Urine Chlamydia DETECTED
== END ==
PROVIDERS: PCP Family Medicine; Visit Provider Physician Assistant
DX: Z11.3 Encounter for screening for infections with a predominantly sexual mode of transmission (principal); N89.8 Other specified noninflammatory disorders of vagina; R30.0 Dysuria
CPT/HCPCS: 87086; 87210; 87491; 87591

== ENCOUNTER → 2019-12-04 13:31 | Outpatient (CLI) | payer OTHER, MEDICAID, SELFPAY ==
[2019-11-30 11:06] VITALS: BMI 34.1
[2019-12-04 13:49] LABS: Add Manual Diff / Slide Review NO; Basophils Absolute Auto 0 /uL (0-100); Basophils Percent Auto 0.3 % (0-2); Eosinophils Absolute Auto 100 /uL (0-450); Eosinophils Percent Auto 0.8 % (2-4); Hematocrit 38.6 % (36-46); Hemoglobin 13.1 g/dL (12.0-16.0); Lymphocytes Absolute Auto 2300 /uL (1100-4500); Lymphocytes Percent Auto 27.2 % (25-40); Mean Corpuscular HGB Conc 33.8 % (30-36); Mean Corpuscular Hemoglobin 29.7 PG (26-34); Monocytes Absolute Auto 600 /uL (0-900); Monocytes Percent Auto 7.3 % (3-14); Neutrophils Absolute Auto 5300 /uL (1500-7000); Neutrophils Percent Auto 64.4 % (50-75); Platelet Count 226 X10^3/uL (150-400); Red Blood Cell Count 4.39 X10^6/uL (4.0-5.2); Red Cell Distribution Width 13.1 % (11.6-14.8); White Blood Cell Count 8.3 X10^3/uL (4.5-11.0)
[2019-12-04 14:39] LABS: TSH w/ Reflex to FT4 0.21 uIU/mL (0.47-4.68)
[2019-12-04 15:04] LABS: Free T4, Direct Thyroxine 1.39 ng/dL (0.78-2.19)
[2019-12-04 15:04] LABS: HIV 1 & 2 Ab/Ag 4th Gen Combo NEGATIVE (NEGATIVE); Hep C Virus Ab w/Reflex Quant NEGATIVE s/c (NEGATIVE); Hepatitis B Surface Antigen NEGATIVE s/c (NEGATIVE)
[2019-12-05 02:08] LABS: HSV 2 IGG AB < 0.91 index (0.00-0.90); HSV1IGG < 0.91 index (0.00-0.90)
[2019-12-05 03:36] LABS: RPR Screen Non Reactive (Non Reactive)
[2019-12-05 18:07] LABS: HSV I/II IgM <0.91 Ratio (0.00-0.90)
== END ==
PROVIDERS: PCP Family Medicine; Referring Provider Registered Nurse; Visit Provider Physician Assistant
DX: Z11.3 Encounter for screening for infections with a predominantly sexual mode of transmission (principal); L65.9 Nonscarring hair loss, unspecified; N89.8 Other specified noninflammatory disorders of vagina
CPT/HCPCS: 36415; 84439; 84443; 85025; 86592; 86694; 86695; 86696; 86803; 87340; 87389

== ENCOUNTER → 2020-01-26 08:49 | Outpatient (CLI) | payer OTHER, MEDICAID, SELFPAY ==
[2019-11-30 11:06] VITALS: BMI 34.1
[2020-01-26 09:04] LABS: Bacteria Urine None Seen
[2020-01-26 11:15] LABS: Appearance Urine UA CLEAR; Bilirubin Urine UA NEGATIVE (NEGATIVE); Color Urine UA YELLOW; Glucose Urine UA NEGATIVE (Negative); Ketones Urine UA NEGATIVE (NEGATIVE); Leukocyte Esterase Urine UA 1+ (NEGATIVE); Nitrite Urine UA NEGATIVE (Negative); Occult Blood Urine UA 3+ (Negative); Protein Urine UA 2+ (Negative); Urobilinogen Urine UA 0.2 E.U./dL (0.2)
[2020-01-26 11:34] LABS: RBC Urine >100/HPF (0-5/HPF); WBC Urine 5-10/HPF (0-5/HPF)
[2020-01-26 11:35] LABS: Calcium Oxalate Crystals Urine Occasional; Culture Indicated Urine Cult Not Indicated; Squamous Epithelial Cell Urine 10-30 /HPF (0-5/HPF)
== END ==
PROVIDERS: PCP Family Medicine; Referring Provider Family Medicine; Visit Provider Family Medicine
DX: R30.0 Dysuria (principal); R35.0 Frequency of micturition; R39.15 Urgency of urination
CPT/HCPCS: 81001; 87086

== ENCOUNTER 2020-01-26 14:30 | Emergency (ER) | payer OTHER, MEDICAID, SELFPAY ==
[2019-11-30 11:06] VITALS: BMI 34.1
[2020-01-26 14:46] VITALS: BP 134/81; PULSE 114; RESP 20; TEMP 37.1; O2SAT 100; BMI 36.4
--- NOTE | 2020-01-26 15:00 | DI.US.S_ITS ---
PROCEDURE: US RENAL COMPLETE INDICATIONS: FLANK PAIN, STONES TECHNIQUE: Real-time scanning was performed of the kidneys and bladder, with image documentation. COMPARISON: None. FINDINGS: Kidneys: Kidneys are normal in size. Right kidney measures 10.7 cm long; left kidney measures 11.8 cm long. Right renal cortical thickness is 1.3 cm; left renal cortical thickness is 1.8 cm. Renal cortical echotexture is normal. No hydronephrosis or nephrolithiasis. No suspicious solid mass lesions. Bladder: The bladder was decompressed. Ureteral jets were not visualized. Miscellaneous: No free pelvic fluid. IMPRESSION: No hydronephrosis. Bladder not well characterize given lack of urine present. Dictated by: Michelle Santos M.D. on 01/26/2020 at 16:04 Approved by: Michelle Santos M.D. on 01/26/2020 at 16:05
[2020-01-26] MEDS: SODIUM CHLORIDE 0.9% 1,000 ML 1000 ML IV (15:14)
[2020-01-26] MEDS: ONDANSETRON 4 MG/2 ML INJ IV (15:15)
[2020-01-26 15:17] LABS: Add Manual Diff / Slide Review NO; Basophils Absolute Auto 0 /uL (0-100); Basophils Percent Auto 0.4 % (0-2); Eosinophils Absolute Auto 100 /uL (0-450); Hematocrit 39.1 % (36-46); Hemoglobin 13.7 g/dL (12.0-16.0); Lymphocytes Absolute Auto 2700 /uL (1100-4500); Lymphocytes Percent Auto 27.6 % (25-40); Mean Corpuscular HGB Conc 35.1 % (30-36); Mean Corpuscular Hemoglobin 30.6 PG (26-34); Mean Corpuscular Volume 87.1 fL (80-100); Monocytes Absolute Auto 600 /uL (0-900); Monocytes Percent Auto 5.8 % (3-14); Neutrophils Absolute Auto 6300 /uL (1500-7000); Neutrophils Percent Auto 65.2 % (50-75); Platelet Count 244 X10^3/uL (150-400); Red Blood Cell Count 4.49 X10^6/uL (4.0-5.2); Red Cell Distribution Width 12.5 % (11.6-14.8); White Blood Cell Count 9.7 X10^3/uL (4.5-11.0)
[2020-01-26 15:33] LABS: Lactate (Lactic Acid) 0.9 mmol/L (0.7-2.1)
[2020-01-26 15:34] LABS: Alanine Aminotransferase 17 IU/L (<35); Albumin Globulin Ratio 1.6 (1.0-2.8); Alkaline Phosphatase 65 U/L (38-126); Aspartate Aminotransferase 25 IU/L (14-36); BUN Creatinine Ratio 20.9 (6-22); Bilirubin Total 0.9 mg/dL (0.2-1.3); Blood Urea Nitrogen 14 mg/dL (7-17); Calcium 9.8 mg/dL (8.4-10.2); Carbon Dioxide 23 mmol/L (22-32); Chloride 101 mmol/L (98-107); Estimated Glomerular Filt Rate > 60.0 mL/min (>60); Globulin 3.2 g/dL (1.7-4.1); Glucose 99 mg/dL (70-100); HEMOLYSIS < 15 (0-50); Potassium 3.8 mmol/L (3.4-5.1); Sodium 135 mmol/L (137-145); Total Protein 8.2 g/dL (6.3-8.2)
[2020-01-26 15:37] LABS: Pregnancy Test Urine Negative (Negative)
[2020-01-26 15:38] LABS: Appearance Urine UA SL CLOUDY; Bilirubin Urine UA NEGATIVE (NEGATIVE); Color Urine UA YELLOW; Glucose Urine UA NEGATIVE (Negative); Ketones Urine UA NEGATIVE (NEGATIVE); Leukocyte Esterase Urine UA 1+ (NEGATIVE); Nitrite Urine UA NEGATIVE (Negative); Occult Blood Urine UA 3+ (Negative); Protein Urine UA NEGATIVE (Negative); Urobilinogen Urine UA 0.2 E.U./dL (0.2)
[2020-01-26 15:49] LABS: Procalcitonin < 0.05 ng/mL (<0.5)
[2020-01-26 15:57] LABS: pH Urine UA 5.5 (4.5-8.0)
[2020-01-26 15:58] LABS: Bacteria Urine Many (>30); RBC Urine 5-10/HPF (0-5/HPF); Squamous Epithelial Cell Urine 10-30 /HPF (0-5/HPF); WBC Urine 5-10/HPF (0-5/HPF)
[2020-01-26 15:59] LABS: Culture Indicated Urine Cult Not Indicated
[2020-01-26] MEDS: KETOROLAC 60 MG/2 ML VIAL 30 MG IV (16:11)
[2020-01-26 16:42] LABS: Bacteria Urine None Seen
[2020-01-26 16:44] LABS: Appearance Urine UA CLEAR; Bilirubin Urine UA NEGATIVE (NEGATIVE); Color Urine UA YELLOW; Glucose Urine UA NEGATIVE (Negative); Ketones Urine UA NEGATIVE (NEGATIVE); Leukocyte Esterase Urine UA NEGATIVE (NEGATIVE); Nitrite Urine UA NEGATIVE (Negative); Occult Blood Urine UA 3+ (Negative); Protein Urine UA NEGATIVE (Negative); Urobilinogen Urine UA 0.2 E.U./dL (0.2)
[2020-01-26 16:50] LABS: pH Urine UA 5.5 (4.5-8.0)
[2020-01-26 16:53] VITALS: BP 121/60; PULSE 98; RESP 16; O2SAT 100
[2020-01-26 16:54] LABS: Culture Indicated Urine Cult Not Indicated; RBC Urine 5-10/HPF (0-5/HPF); Squamous Epithelial Cell Urine 0-1 /HPF (0-5/HPF); WBC Urine 0-1/HPF (0-5/HPF)
[2020-01-26 17:59] VITALS: BP 130/59; PULSE 91; RESP 16; O2SAT 100
--- NOTE | 2020-01-26 19:14 | ED.ABDPAIN ---
HPI - Abdominal Pain <Nica SolKEV tilleyP-BC - Last Filed: 01/26/20 19:20> General Chief Complaint: Abdominal Pain Stated Complaint: poss kidney infection/ pain Time Seen by Provider: 01/26/20 14:36 Source: patient Mode of arrival: Ambulatory Limitations: no limitations History of Present Illness HPI narrative: The patient is a 24-year-old female former smoker with history of depression, ureteral stones, overdose and suicide attempt who presents with a chief complaint of bilateral flank pain for the past 3-4 days. She states that she has a history of stones, thinks it might be that. She is also concerned about kidney infection as both of her flanks hurt. She denies any fevers, complains of nausea no vomiting. She denies any abdominal pain or diarrhea. She denies any possibility of . She states that she had a urinalysis this morning and they found blood so she came to the emergency department. She has a planned kidney ultrasound on Wednesday, but she thinks that she cannot wait until then because her pain is getting worse. She tried azo when she felt slight urinary urgency and frequency few days ago. Related Data Home Medications Medication Instructions Recorded Confirmed multivit with min-folic acid 200 See Rx Instructions PO .COMPLEX 05/16/19 01/08/20 mcg chewable tablet tab 5-hydroxytryptophan (5-HTP) 100 mg 100 mg PO DAILY 09/19/19 01/08/20 capsule ashwagandha PO 09/19/19 01/08/20 metformin 500 mg tablet 500 mg PO BID 01/08/20 01/08/20 Previous Rx's Medication Instructions Recorded desvenlafaxine succinate 25 mg 25 mg PO QAM #30 tab 12/29/19 tablet,extended release 24 hr dextroamphetamine-amphetamine 10 10 mg PO DAILY PRN #30 tab 01/08/20 mg tablet lisdexamfetamine 60 mg capsule 60 mg PO QDAY #30 cap 01/08/20 zolpidem 10 mg tablet 10 mg PO BEDTIME PRN #30 tab 01/08/20 hydrocodone 5 mg-acetaminophen 325 1 tab PO Q4-6H PRN #10 tab 01/09/20 mg tablet ketorolac 10 mg PO TID PRN #14 tab 01/26/20 ondansetron 4 mg PO Q6H PRN #20 tab 01/26/20 tamsulosin 0.4 mg PO DAILY #7 cap 01/26/20 Allergies Allergy/AdvReac Type Severity Reaction Status Date / Time latex [LATEX] Allergy Mild Verified 01/26/20 14:52 nickel [NICKEL] Allergy Mild Verified 01/26/20 14:52 omeprazole [OMEPRAZOLE] AdvReac Severe STOMACH Verified 01/26/20 14:52 CRAMPING, NAUSEA adhesive tape AdvReac Mild ITCHY - Verified 01/26/20 14:52 PAPER TAPE Review of Systems <OTTONIEL Kaur - Last Filed: 01/26/20 19:20> Review of Systems Narrative: GENERAL: Denies chills, fatigue, malaise, fever, sweats. HEENT: Denies sinus pain, ear pain, sore throat, difficulty swallowing, dizziness. RESPIRATORY: Denies dyspnea, cough, wheezing, hemoptysis, sputum. CARDIOVASCULAR: Denies chest pain, palpitations, orthopnea, edema, GASTROINTESTINAL: See HPI : See HPI MUSCULOSKELETAL: denies weakness, joint pain, or bony pain SKIN: Denies rash, skin lesions, or other NEUROLOGIC: Denies weakness, headache, numbness, change in speech, confusion, seizures, incoordination. PSYCHIATRIC: No concerning psychosocial issues. 12 point review of systems is negative except for those stated above Patient History <OTTONIEL Kaur - Last Filed: 01/26/20 19:20> Medical History Acne (Chronic) Anxiety (Chronic 03/2006) Chronic headaches (Chronic) Depression (Chronic 05/04/07) Factor V Leiden (Chronic) Hip pain (Chronic 2006) Hip tendonitis (Chronic 2006) Keratosis pilaris (Chronic 01/21/09) Kidney stones (Resolved 02/26/13) Migraines (Chronic) Screen for STD (sexually transmitted disease) (Acute) Vaginal discharge (Acute) Surgical History Anesthesia (Resolved) History of third molar tooth extraction (Resolved) Family History Father Age: 61 Hypertension High cholesterol Grandfather Cancer Lung cancer Smoking Grandmother Obesity Heart disease Dementia Alcohol abuse Mother Obesity Grandfather Complication of surgery Grandmother No problems noted. Social History household members: family Smoking Status: Former smoker alcohol intake: current substance use type: does not use Smoking Status: Former smoker alcohol intake frequency: a few times a month Substance Use Type: does not use, methamphetamine, prescription drug and other Exam <OTTONIEL Kaur - Last Filed: 01/26/20 19:20> Narrative Exam Narrative: GENERAL: This is a well-nourished, well-developed patient, appears uncomfortable HEAD: Atraumatic. Normocephalic. No temporal or scalp tenderness. EYES: Pupils equal round and reactive. Extraocular motions intact. No scleral icterus. No injection or drainage. ENT: Nose without bleeding, purulent drainage or septal hematoma. Airway patent. NECK: Trachea midline. No JVD or lymphadenopathy. Supple, nontender, no meningeal signs. CARDIOVASCULAR: Regular rate and rhythm RESPIRATORY: Clear to auscultation. Breath sounds equal bilaterally. No wheezes, rales, or rhonchi. No cough. No increased respiratory effort. No accessory muscle use. GASTROINTESTINAL: Abdomen soft, non-tender, nondistended. No hepato-splenomegaly, or palpable masses. No guarding. Active bowel sounds all 4 quadrants. EXTREMITIES: No clubbing, cyanosis, or edema. No joint tenderness, effusion, or edema noted. BACK: Nontender without deformity or crepitance. No CVA tenderness bilaterally. NEURO: AOx3. SKIN: No rash or erythema on visible skin Initial Vital Signs Initial Vital Signs: Vital Signs Temperature 98.8 F 01/26/20 14:46 Pulse Rate 114 H 01/26/20 14:46 Respiratory Rate 01/26/20 14:46 Blood Pressure 134/81 01/26/20 14:46 Pulse Oximetry 100 01/26/20 14:46 <Evan Araiza DO - Last Filed: 01/26/20 19:25> Initial Vital Signs Initial Vital Signs: Vital Signs Temperature 98.8 F 01/26/20 14:46 Pulse Rate 114 H 01/26/20 14:46 Respiratory Rate 01/26/20 14:46 Blood Pressure 134/81 01/26/20 14:46 Pulse Oximetry 100 01/26/20 14:46 Course <DIANA Kaur-BC - Last Filed: 01/26/20 19:20> Orders Ordered: ED Orders 01/26/20 14:57 Test Urine Stat Urinalysis and Microscopic Stat 01/26/20 15:00 US renal complete Stat 01/26/20 15:08 Complete Blood Count AUTO DIFF Stat Comprehensive Metabolic Panel Stat Lactate (Lactic Acid) Stat Procalcitonin Stat 01/26/20 16:16 Urinalysis and Microscopic Stat Discontinued Medications Sodium Chloride (Normal Saline 0.9%) 1,000 mls @ 1,000 mls/hr IV BOLUS ONE Stop: 01/26/20 15:52 Last Infusion: 01/26/20 16:14 Dose: 0 mls/hr Documented by: Admin: 01/26/20 15:14 Dose: 1,000 mls/hr Documented by: ADRIA Ketorolac Tromethamine (Toradol) 30 mg IV NOW ONE Stop: 01/26/20 15:42 Last Admin: 01/26/20 16:11 Dose: 30 mg Documented by: ADRIA Ondansetron HCl (Zofran) 4 mg IV NOW ONE Stop: 01/26/20 15:03 Last Admin: 01/26/20 15:15 Dose: 4 mg Documented by: ADRIA Vital Signs Vital signs: Vital Signs - 8 hr 01/26/20 14:46 01/26/20 16:53 01/26/20 17:59 Temperature 98.8 F Pulse Rate 114 H 98 H 91 H Respiratory Rate 20 16 16 Blood Pressure 134/81 Blood Pressure [Left Arm] 121/60 130/59 L Pulse Oximetry 100 100 100 <Evan Araiza DO - Last Filed: 01/26/20 19:25> Orders Ordered: ED Orders 01/26/20 14:57 Test Urine Stat Urinalysis and Microscopic Stat 01/26/20 15:00 US renal complete Stat 01/26/20 15:08 Complete Blood Count AUTO DIFF Stat Comprehensive Metabolic Panel Stat Lactate (Lactic Acid) Stat Procalcitonin Stat 01/26/20 16:16 Urinalysis and Microscopic Stat Discontinued Medications Sodium Chloride (Normal Saline 0.9%) 1,000 mls @ 1,000 mls/hr IV BOLUS ONE Stop: 01/26/20 15:52 Last Infusion: 01/26/20 16:14 Dose: 0 mls/hr Documented by: Admin: 01/26/20 15:14 Dose: 1,000 mls/hr Documented by: ADRIA Ketorolac Tromethamine (Toradol) 30 mg IV NOW ONE Stop: 01/26/20 15:42 Last Admin: 01/26/20 16:11 Dose: 30 mg Documented by: ADRIA Ondansetron HCl (Zofran) 4 mg IV NOW ONE Stop: 01/26/20 15:03 Last Admin: 01/26/20 15:15 Dose: 4 mg Documented by: ADRIA Vital Signs Vital signs: Vital Signs - 8 hr 01/26/20 14:46 01/26/20 16:53 01/26/20 17:59 Temperature 98.8 F Pulse Rate 114 H 98 H 91 H Respiratory Rate 20 16 16 Blood Pressure 134/81 Blood Pressure [Left Arm] 121/60 130/59 L Pulse Oximetry 100 100 100 MDM - Abdominal Pain <DIANA Kaur- - Last Filed: 01/26/20 19:20> Lab Data Result diagrams: 01/26/20 15:08 01/26/20 15:08 Labs: Lab Results 01/26/20 01/26/20 01/26/20 Range/Units 14:57 14:57 15:08 WBC 9.7 (4.5-11.0) X10^3/uL RBC 4.49 (4.0-5.2) X10^6/uL Hgb 13.7 (12.0-16.0) g/dL Hct 39.1 (36-46) % MCV 87.1 (80-100) fL MCH 30.6 (26-34) PG MCHC 35.1 (30-36) % RDW 12.5 (11.6-14.8) % Plt Count 244 (150-400) X10^3/uL Neut % (Auto) 65.2 (50-75) % Lymph % (Auto) 27.6 (25-40) % [place] % (Auto) 5.8 (3-14) % Eos % (Auto) 1.0 L (2-4) % Baso % (Auto) 0.4 (0-2) % Neut # (Auto) 6300 (3247-6283) /uL Lymph # (Auto) 2700 (1119-5166) /uL [place] # (Auto) 600 (0-900) /uL Eos # (Auto) 100 (0-450) /uL Baso # (Auto) 0 (0-100) /uL Sodium (137-145) mmol/L Potassium (3.4-5.1) mmol/L Chloride (98-107) mmol/L Carbon Dioxide (22-32) mmol/L BUN (7-17) mg/dL Creatinine (0.52-1.04) mg/dL Estimated GFR (>60) mL/min BUN/Creatinine Ratio (6-22) Glucose (70-100) mg/dL Lactate (0.7-2.1) mmol/L Calcium (8.4-10.2) mg/dL Total Bilirubin (0.2-1.3) mg/dL AST (14-36) IU/L ALT (<35) IU/L Alkaline Phosphatase (38-126) U/L Total Protein (6.3-8.2) g/dL Albumin (3.5-5.0) g/dL Globulin (1.7-4.1) g/dL Albumin/Globulin Ratio (1.0-2.8) Procalcitonin (<0.5) ng/mL Urine Color Yellow Urine Appearance Sl cloudy Urine pH 5.5 (4.5-8.0) Ur Specific [place] 1.020 (1.000-1.035) Urine Protein Negative (Negative) Urine Glucose (UA) Negative (Negative) g/dL Urine Ketones Negative (NEGATIVE) Urine Occult Blood 3+ H (Negative) Urine Nitrate Negative (Negative) Urine Bilirubin Negative (NEGATIVE) Urine Urobilinogen 0.2 (0.2) E.U./dL Ur Leukocyte Esterase 1+ H (NEGATIVE) Urine RBC 5-10/hpf H (0-5/HPF) Urine WBC 5-10/hpf H (0-5/HPF) Ur Squamous Epith Cells 10-30 /hpf H (0-5/HPF) Urine Bacteria Many (>30) H D (None) Ur Culture Indicated? Cult not indicated Urine Test Negative (Negative) 01/26/20 01/26/20 01/26/20 Range/Units 15:08 15:08 15:08 WBC (4.5-11.0) X10^3/uL RBC (4.0-5.2) X10^6/uL Hgb (12.0-16.0) g/dL Hct (36-46) % MCV (80-100) fL MCH (26-34) PG MCHC (30-36) % RDW (11.6-14.8) % Plt Count (150-400) X10^3/uL Neut % (Auto) (50-75) % Lymph % (Auto) (25-40) % [place] % (Auto) (3-14) % Eos % (Auto) (2-4) % Baso % (Auto) (0-2) % Neut # (Auto) (7115-2853) /uL Lymph # (Auto) (2333-6533) /uL [place] # (Auto) (0-900) /uL Eos # (Auto) (0-450) /uL Baso # (Auto) (0-100) /uL Sodium 135 L (137-145) mmol/L Potassium 3.8 (3.4-5.1) mmol/L Chloride 101 (98-107) mmol/L Carbon Dioxide 23 (22-32) mmol/L BUN 14 (7-17) mg/dL Creatinine 0.67 (0.52-1.04) mg/dL Estimated GFR > 60.0 (>60) mL/min BUN/Creatinine Ratio 20.9 (6-22) Glucose 99 (70-100) mg/dL Lactate 0.9 (0.7-2.1) mmol/L Calcium 9.8 (8.4-10.2) mg/dL Total Bilirubin 0.9 (0.2-1.3) mg/dL AST 25 (14-36) IU/L ALT 17 (<35) IU/L Alkaline Phosphatase 65 (38-126) U/L Total Protein 8.2 (6.3-8.2) g/dL Albumin 5.0 (3.5-5.0) g/dL Globulin 3.2 (1.7-4.1) g/dL Albumin/Globulin Ratio 1.6 (1.0-2.8) Procalcitonin < 0.05 (<0.5) ng/mL Urine Color Urine Appearance Urine pH (4.5-8.0) Ur Specific [place] (1.000-1.035) Urine Protein (Negative) Urine Glucose (UA) (Negative) g/dL Urine Ketones (NEGATIVE) Urine Occult Blood (Negative) Urine Nitrate (Negative) Urine Bilirubin (NEGATIVE) Urine Urobilinogen (0.2) E.U./dL Ur Leukocyte Esterase (NEGATIVE) Urine RBC (0-5/HPF) Urine WBC (0-5/HPF) Ur Squamous Epith Cells (0-5/HPF) Urine Bacteria (None) Ur Culture Indicated? Urine Test (Negative) 01/26/20 Range/Units 16:16 WBC (4.5-11.0) X10^3/uL RBC (4.0-5.2) X10^6/uL Hgb (12.0-16.0) g/dL Hct (36-46) % MCV (80-100) fL MCH (26-34) PG MCHC (30-36) % RDW (11.6-14.8) % Plt Count (150-400) X10^3/uL Neut % (Auto) (50-75) % Lymph % (Auto) (25-40) % [place] % (Auto) (3-14) % Eos % (Auto) (2-4) % Baso % (Auto) (0-2) % Neut # (Auto) (7071-9062) /uL Lymph # (Auto) (1190-1498) /uL [place] # (Auto) (0-900) /uL Eos # (Auto) (0-450) /uL Baso # (Auto) (0-100) /uL Sodium (137-145) mmol/L Potassium (3.4-5.1) mmol/L Chloride (98-107) mmol/L Carbon Dioxide (22-32) mmol/L BUN (7-17) mg/dL Creatinine (0.52-1.04) mg/dL Estimated GFR (>60) mL/min BUN/Creatinine Ratio (6-22) Glucose (70-100) mg/dL Lactate (0.7-2.1) mmol/L Calcium (8.4-10.2) mg/dL Total Bilirubin (0.2-1.3) mg/dL AST (14-36) IU/L ALT (<35) IU/L Alkaline Phosphatase (38-126) U/L Total Protein (6.3-8.2) g/dL Albumin (3.5-5.0) g/dL Globulin (1.7-4.1) g/dL Albumin/Globulin Ratio (1.0-2.8) Procalcitonin (<0.5) ng/mL Urine Color Yellow Urine Appearance Clear Urine pH 5.5 (4.5-8.0) Ur Specific [place] 1.010 (1.000-1.035) Urine Protein Negative (Negative) Urine Glucose (UA) Negative (Negative) g/dL Urine Ketones Negative (NEGATIVE) Urine Occult Blood 3+ H (Negative) Urine Nitrate Negative (Negative) Urine Bilirubin Negative (NEGATIVE) Urine Urobilinogen 0.2 (0.2) E.U./dL Ur Leukocyte Esterase Negative (NEGATIVE) Urine RBC 5-10/hpf H (0-5/HPF) Urine WBC 0-1/hpf (0-5/HPF) Ur Squamous Epith Cells 0-1 /hpf D (0-5/HPF) Urine Bacteria None seen (None) Ur Culture Indicated? Cult not indicated Urine Test (Negative) Imaging Data Renal ultrasound: Radiologist's Impression: [place] [address] Ultrasound Report Signed Patient: Paolo Holley [facility]#: [id number] : 1995Acct:[id number] Age/Sex: 24 / FDate of Service: 01/26/20 Loc: ED Accession Number: [id number] Procedure: US renal complete Ordering Provider: Nica Concepcion PROCEDURE: US RENAL COMPLETE INDICATIONS: FLANK PAIN, STONES TECHNIQUE: Real-time scanning was performed of the kidneys and bladder, with image documentation. COMPARISON: None. FINDINGS: Kidneys: Kidneys are normal in size. Right kidney measures 10.7 cm long; left kidney measures 11.8 cm long. Right renal cortical thickness is 1.3 cm; left renal cortical thickness is 1.8 cm. Renal cortical echotexture is normal. No hydronephrosis or nephrolithiasis. No suspicious solid mass lesions. Bladder: The bladder was decompressed. Ureteral jets were not visualized. Miscellaneous: No free pelvic fluid. IMPRESSION: No hydronephrosis. Bladder not well characterize given lack of urine present. Dictated by: Michelle Santos M.D. on 01/26/2020 at 16:04 Approved by: Michelle Santos M.D. on 01/26/2020 at 16:05 [facility] Narrative Medical decision making narrative: The patient is a 24-year-old female who presents with a chief complaint of bilateral flank pain. She is afebrile, negative lactate, negative procalcitonin and no leukocytosis on her lab work. Renal function is reassuring. Initial urine had too many squamous cells, so we got a repeat urine. No bacteria noted. No leukocyte esterase or nitrates noted. Of note the patient's 1st urinalysis today illustrated calcium oxalate crystals. Is possible that she has passed stones, which would result in the crystals in her urine as well as her hematuria. She felt much improved after the above-stated therapies, so we placed her on Toradol, Zofran, Flomax. I discussed at length follow up with primary care provider discussed coming back to the emergency department for any acute concerns. Discussed monitor for signs of infection such as fever, dysuria etcetera. Patient has no questions or concerns upon discharge and states understanding return precautions as well as follow-up care. <Evan Araiza, DO - Last Filed: 01/26/20 19:25> Lab Data Labs: Lab Results 01/26/20 01/26/20 01/26/20 Range/Units 14:57 14:57 15:08 WBC 9.7 (4.5-11.0) X10^3/uL RBC 4.49 (4.0-5.2) X10^6/uL Hgb 13.7 (12.0-16.0) g/dL Hct 39.1 (36-46) % MCV 87.1 (80-100) fL MCH 30.6 (26-34) PG MCHC 35.1 (30-36) % RDW 12.5 (11.6-14.8) % Plt Count 244 (150-400) X10^3/uL Neut % (Auto) 65.2 (50-75) % Lymph % (Auto) 27.6 (25-40) % [place] % (Auto) 5.8 (3-14) % Eos % (Auto) 1.0 L (2-4) % Baso % (Auto) 0.4 (0-2) % Neut # (Auto) 6300 (5812-1527) /uL Lymph # (Auto) 2700 (7890-1268) /uL [place] # (Auto) 600 (0-900) /uL Eos # (Auto) 100 (0-450) /uL Baso # (Auto) 0 (0-100) /uL Sodium (137-145) mmol/L Potassium (3.4-5.1) mmol/L Chloride (98-107) mmol/L Carbon Dioxide (22-32) mmol/L BUN (7-17) mg/dL Creatinine (0.52-1.04) mg/dL Estimated GFR (>60) mL/min BUN/Creatinine Ratio (6-22) Glucose (70-100) mg/dL Lactate (0.7-2.1) mmol/L Calcium (8.4-10.2) mg/dL Total Bilirubin (0.2-1.3) mg/dL AST (14-36) IU/L ALT (<35) IU/L Alkaline Phosphatase (38-126) U/L Total Protein (6.3-8.2) g/dL Albumin (3.5-5.0) g/dL Globulin (1.7-4.1) g/dL Albumin/Globulin Ratio (1.0-2.8) Procalcitonin (<0.5) ng/mL Urine Color Yellow Urine Appearance Sl cloudy Urine pH 5.5 (4.5-8.0) Ur Specific [place] 1.020 (1.000-1.035) Urine Protein Negative (Negative) Urine Glucose (UA) Negative (Negative) g/dL Urine Ketones Negative (NEGATIVE) Urine Occult Blood 3+ H (Negative) Urine Nitrate Negative (Negative) Urine Bilirubin Negative (NEGATIVE) Urine Urobilinogen 0.2 (0.2) E.U./dL Ur Leukocyte Esterase 1+ H (NEGATIVE) Urine RBC 5-10/hpf H (0-5/HPF) Urine WBC 5-10/hpf H (0-5/HPF) Ur Squamous Epith Cells 10-30 /hpf H (0-5/HPF) Urine Bacteria Many (>30) H D (None) Ur Culture Indicated? Cult not indicated Urine Test Negative (Negative) 06/01/0901/26/20 01/26/20 Range/Units 15:08 15:08 15:08 WBC (4.5-11.0) X10^3/uL RBC (4.0-5.2) X10^6/uL Hgb (12.0-16.0) g/dL Hct (36-46) % MCV (80-100) fL MCH (26-34) PG MCHC (30-36) % RDW (11.6-14.8) % Plt Count (150-400) X10^3/uL Neut % (Auto) (50-75) % Lymph % (Auto) (25-40) % [place] % (Auto) (3-14) % Eos % (Auto) (2-4) % Baso % (Auto) (0-2) % Neut # (Auto) (5473-1938) /uL Lymph # (Auto) (0539-8137) /uL [place] # (Auto) (0-900) /uL Eos # (Auto) (0-450) /uL Baso # (Auto) (0-100) /uL Sodium 135 L (137-145) mmol/L Potassium 3.8 (3.4-5.1) mmol/L Chloride 101 (98-107) mmol/L Carbon Dioxide 23 (22-32) mmol/L BUN 14 (7-17) mg/dL Creatinine 0.67 (0.52-1.04) mg/dL Estimated GFR > 60.0 (>60) mL/min BUN/Creatinine Ratio 20.9 (6-22) Glucose 99 (70-100) mg/dL Lactate 0.9 (0.7-2.1) mmol/L Calcium 9.8 (8.4-10.2) mg/dL Total Bilirubin 0.9 (0.2-1.3) mg/dL AST 25 (14-36) IU/L ALT 17 (<35) IU/L Alkaline Phosphatase 65 (38-126) U/L Total Protein 8.2 (6.3-8.2) g/dL Albumin 5.0 (3.5-5.0) g/dL Globulin 3.2 (1.7-4.1) g/dL Albumin/Globulin Ratio 1.6 (1.0-2.8) Procalcitonin < 0.05 (<0.5) ng/mL Urine Color Urine Appearance Urine pH (4.5-8.0) Ur Specific [place] (1.000-1.035) Urine Protein (Negative) Urine Glucose (UA) (Negative) g/dL Urine Ketones (NEGATIVE) Urine Occult Blood (Negative) Urine Nitrate (Negative) Urine Bilirubin (NEGATIVE) Urine Urobilinogen (0.2) E.U./dL Ur Leukocyte Esterase (NEGATIVE) Urine RBC (0-5/HPF) Urine WBC (0-5/HPF) Ur Squamous Epith Cells (0-5/HPF) Urine Bacteria (None) Ur Culture Indicated? Urine Test (Negative) 01/26/20 Range/Units 16:16 WBC (4.5-11.0) X10^3/uL RBC (4.0-5.2) X10^6/uL Hgb (12.0-16.0) g/dL Hct (36-46) % MCV (80-100) fL MCH (26-34) PG MCHC (30-36) % RDW (11.6-14.8) % Plt Count (150-400) X10^3/uL Neut % (Auto) (50-75) % Lymph % (Auto) (25-40) % [place] % (Auto) (3-14) % Eos % (Auto) (2-4) % Baso % (Auto) (0-2) % Neut # (Auto) (9923-9648) /uL Lymph # (Auto) (2672-1524) /uL [place] # (Auto) (0-900) /uL Eos # (Auto) (0-450) /uL Baso # (Auto) (0-100) /uL Sodium (137-145) mmol/L Potassium (3.4-5.1) mmol/L Chloride (98-107) mmol/L Carbon Dioxide (22-32) mmol/L BUN (7-17) mg/dL Creatinine (0.52-1.04) mg/dL Estimated GFR (>60) mL/min BUN/Creatinine Ratio (6-22) Glucose (70-100) mg/dL Lactate (0.7-2.1) mmol/L Calcium (8.4-10.2) mg/dL Total Bilirubin (0.2-1.3) mg/dL AST (14-36) IU/L ALT (<35) IU/L Alkaline Phosphatase (38-126) U/L Total Protein (6.3-8.2) g/dL Albumin (3.5-5.0) g/dL Globulin (1.7-4.1) g/dL Albumin/Globulin Ratio (1.0-2.8) Procalcitonin (<0.5) ng/mL Urine Color Yellow Urine Appearance Clear Urine pH 5.5 (4.5-8.0) Ur Specific [place] 1.010 (1.000-1.035) Urine Protein Negative (Negative) Urine Glucose (UA) Negative (Negative) g/dL Urine Ketones Negative (NEGATIVE) Urine Occult Blood 3+ H (Negative) Urine Nitrate Negative (Negative) Urine Bilirubin Negative (NEGATIVE) Urine Urobilinogen 0.2 (0.2) E.U./dL Ur Leukocyte Esterase Negative (NEGATIVE) Urine RBC 5-10/hpf H (0-5/HPF) Urine WBC 0-1/hpf (0-5/HPF) Ur Squamous Epith Cells 0-1 /hpf D (0-5/HPF) Urine Bacteria None seen (None) Ur Culture Indicated? Cult not indicated Urine Test (Negative) Discharge Plan Departure Patient Disposition: Home Clinical Impression: Acute flank pain, Calcium oxalate crystals in urine Discharge Date/Time: 01/26/20 18:10 Instructions: DI for Kidney Stones, DI for Flank Pain Activity Restrictions/Additional Instructions: Thank you for trusting us with your care today As I discussed, there are signs of passed calcium oxalate stones in your urine this morning. Between that and your flank pain as well as low blood in your urine, it is concerning that you might have passed some stones Your lab work is reassuring your kidney function is good I sent 3 prescriptions to 2 Minutes. This includes an anti-inflammatory, nausea medication and a medication help stones pass easier I have given you a prescription of Toradol. This is an NSAID. Do not combine it with other NSAIDs such as Aleve or ibuprofen. I suggest taking it with some food, as it can irritate your stomach. Please follow-up with primary care provider in the next few days Please come back to the emergency department for any acute concerns such as inability keep down fluids etcetera Please monitor for signs of infection to suggest high fevers, inability keep down fluids etcetera Prescriptions: New ketorolac 10 mg tablet 10 mg PO TID PRN (Reason: pain) Qty: 14 RF: 0 ondansetron 4 mg tablet,disintegrating 4 mg PO Q6H PRN (Reason: nausea and vomiting) Qty: 20 RF: 0 tamsulosin 0.4 mg capsule 0.4 mg PO DAILY Qty: 7 RF: 0 No Action 5-hydroxytryptophan (5-HTP) 100 mg capsule 100 mg PO DAILY RF: 0 ashwagandha PO RF: 0 metformin 500 mg tablet 500 mg PO BID RF: 0 zolpidem 10 mg tablet 10 mg PO BEDTIME PRN (Reason: insomnia) Qty: 30 RF: 2 Vyvanse 60 mg capsule 60 mg PO QDAY Qty: 30 RF: 0 dextroamphetamine-amphetamine 10 mg tablet 10 mg PO DAILY PRN (Reason: Inattention) Qty: 30 RF: 0 desvenlafaxine succinate [Pristiq] 25 mg tablet extended release 24 hr 25 mg PO QAM Qty: 30 RF: 1 Hold Instructions: pending PA hydrocodone-acetaminophen 5-325 mg tablet 1 tab PO Q4-6H PRN (Reason: migraine headache) Qty: 10 RF: 0 Women's Multivitamin Gummies 200 mcg tablet,chewable See Rx Instructions PO .COMPLEX RF: 0 Referrals: Faith Cyr MD [Primary Care Provider] - <Evan Araiza DO - Last Filed: 01/26/20 19:25> [facility] Dr Araiza Co-Sign Statement: I was available for consultation during this patient's emergency department visit. This chart is signed by myself for administrative purposes only. I did not have direct contact with this patient during this visit. They were seen independently by the APC.
== END 2020-01-26 18:10 | disposition home or self-care (01) ==
PROVIDERS: Emergency Provider Nurse Practitioner Family; PCP Family Medicine
DX: R10.9 Unspecified abdominal pain (principal); R82.998 Other abnormal findings in urine; I95.9 Hypotension, unspecified; R30.0 Dysuria; R35.0 Frequency of micturition; R39.15 Urgency of urination
CPT/HCPCS: 36415; 76770; 80053; 81001; 81025; 83605; 84145; 85025; 87086; 96361; 96374; 96375; 99284; J1885; J2405

== ENCOUNTER → 2020-02-08 16:52 | Outpatient (CLI) | payer OTHER, MEDICAID, SELFPAY ==
[2019-11-30 11:06] VITALS: BMI 34.1
[2020-02-08 18:36] LABS: Cortisol PM (After 5PM) 7.01 ug/dL (1.7-14.1)
== END ==
PROVIDERS: PCP Family Medicine; Referring Provider Family Medicine; Visit Provider Family Medicine
DX: F32.9 Major depressive disorder, single episode, unspecified (principal); F41.9 Anxiety disorder, unspecified; R53.83 Other fatigue
CPT/HCPCS: 36415; 82533

== ENCOUNTER → 2020-02-09 07:55 | Outpatient (CLI) | payer OTHER, MEDICAID, SELFPAY ==
[2019-11-30 11:06] VITALS: BMI 34.1
[2020-02-09 09:43] LABS: TSH w/ Reflex to FT4 0.29 uIU/mL (0.47-4.68)
[2020-02-09 09:49] LABS: Ferritin 86 ng/mL (6-137)
[2020-02-09 09:51] LABS: Cortisol AM (Before 10AM) 1.02 ug/dL (4.46-22.7)
[2020-02-09 10:21] LABS: Free T4, Direct Thyroxine 1.36 ng/dL (0.78-2.19)
== END ==
PROVIDERS: PCP Family Medicine; Referring Provider Family Medicine; Visit Provider Family Medicine
DX: L65.9 Nonscarring hair loss, unspecified (principal); F32.9 Major depressive disorder, single episode, unspecified; F41.9 Anxiety disorder, unspecified; R53.83 Other fatigue
CPT/HCPCS: 36415; 82533; 82728; 84439; 84443

== ENCOUNTER → 2020-02-20 14:04 | Outpatient (CLI) | payer OTHER, MEDICAID, SELFPAY ==
[2019-11-30 11:06] VITALS: BMI 34.1
--- NOTE | 2020-02-20 14:05 | DI.US.S_ITS ---
PROCEDURE: US THYROID INDICATIONS: ABNORMAL TSH TECHNIQUE: Real-time scanning was performed of the thyroid gland, with image documentation. COMPARISON: None. FINDINGS: Right: Thyroid lobe measures 5.8 x 1.4 x 2.0 cm, and is homogeneous in echotexture. Left: Thyroid lobe measures 5.8 x 1.4 x 2.3 cm, and is homogenous in echotexture. Isthmus: 3.0 mm thick. IMPRESSION: Normal thyroid. Dictated by: Gt Lloyd Elisa Interpreted: Iram De Leon MD on 02/20/2020 at 16:14 Approved by: Iram De Leon M.D. on 02/20/2020 at 18:17
== END ==
PROVIDERS: PCP Family Medicine; Referring Provider Family Medicine; Visit Provider Family Medicine
DX: R79.89 Other specified abnormal findings of blood chemistry (principal)
CPT/HCPCS: 76536

== ENCOUNTER → 2020-03-02 13:36 | Outpatient (CLI) | payer OTHER, MEDICAID, SELFPAY ==
[2019-11-30 11:06] VITALS: BMI 34.1
[2020-03-02 16:15] LABS: Urine N gonorrhoeae NOT DETECTED
[2020-03-02 17:11] LABS: Urine Chlamydia NOT DETECTED
== END ==
PROVIDERS: PCP Family Medicine; Visit Provider Physician Assistant
DX: N89.8 Other specified noninflammatory disorders of vagina (principal); R35.0 Frequency of micturition; R39.15 Urgency of urination; R30.0 Dysuria
CPT/HCPCS: 87086; 87210; 87491; 87591

== ENCOUNTER → 2020-03-05 10:10 | Outpatient (CLI) | payer OTHER, MEDICAID, SELFPAY ==
[2019-11-30 11:06] VITALS: BMI 34.1
[2020-03-09 13:11] LABS: Chlamydia trachomatis Negative (Negative); Mycoplasma genitalium Negative (Negative); Neisseria gonorrhoeae Negative (Negative)
== END ==
PROVIDERS: PCP Family Medicine; Visit Provider Registered Nurse Diabetes Educator
DX: R10.2 Pelvic and perineal pain (principal)
CPT/HCPCS: 87210; 87491; 87591

== ENCOUNTER → 2020-03-05 10:34 | Outpatient (CLI) | payer OTHER, MEDICAID, SELFPAY ==
[2019-11-30 11:06] VITALS: BMI 34.1
[2020-03-05 11:44] LABS: Bilirubin Urine UA NEGATIVE (NEGATIVE); Color Urine UA YELLOW; Glucose Urine UA NEGATIVE (Negative); Ketones Urine UA NEGATIVE (NEGATIVE); Leukocyte Esterase Urine UA NEGATIVE (NEGATIVE); Nitrite Urine UA NEGATIVE (Negative); Occult Blood Urine UA 3+ (Negative); Protein Urine UA NEGATIVE (Negative); Specific Gravity Urine UA 1.025 (1.000-1.035); Urobilinogen Urine UA 0.2 E.U./dL (0.2)
[2020-03-05 11:45] LABS: Appearance Urine UA Slightly Cloudy
[2020-03-05 11:46] LABS: Pregnancy Test Urine Negative (Negative)
[2020-03-05 11:54] LABS: Bacteria Urine Few (2-10); Culture Indicated Urine Specimen Cultured; Mucus Urine 1+ (Negative); RBC Urine >100/HPF (0-5/HPF); Squamous Epithelial Cell Urine 1-5 /HPF (0-5/HPF); WBC Urine 5-10/HPF (0-5/HPF)
== END ==
PROVIDERS: PCP Family Medicine; Referring Provider Registered Nurse Diabetes Educator; Visit Provider Registered Nurse Diabetes Educator
DX: R10.2 Pelvic and perineal pain (principal)
CPT/HCPCS: 81001; 81025; 87086; 87210; 87491; 87591

== ENCOUNTER → 2020-03-12 15:00 | Outpatient (CLI) | payer OTHER, MEDICAID, SELFPAY ==
[2019-11-30 11:06] VITALS: BMI 34.1
--- NOTE | 2020-03-12 15:01 | DI.US.S_ITS ---
PROCEDURE: US PELVIC COMPLETE INDICATIONS: WORSENING PELVIC PAIN X 1 MONTH TECHNIQUE: Real-time scanning was performed of the pelvic organs, with image documentation. Additional endovaginal scanning was necessary due to incomplete visualization of the adnexal and endometrial structures by transabdominal scanning. COMPARISON: None. FINDINGS: Transabdominal scanning: Limited scanning through the kidneys shows no hydronephrosis. No pathologic free abdominal or pelvic fluid. Endovaginal scanning: Uterus: Uterus is normal in size at 6.7 x 3.0 x 3.8 cm. The endometrium measures 3.1 mm in combined thickness. Ovaries: Ovaries normal size measuring 3.1 x 2.0 x 2.4 cm on the right and 3.0 x 2.4 x 2.4 cm on the left. No adnexal masses. IMPRESSION: No source for pelvic pain identified. Dictated by: Gt DAS Interpreted: Diamond Mims MD on 03/12/2020 at 17:11 Approved by: Diamond Mims M.D. on 03/12/2020 at 19:28
== END ==
PROVIDERS: PCP Family Medicine; Referring Provider Registered Nurse Diabetes Educator; Visit Provider Registered Nurse Diabetes Educator
DX: R10.2 Pelvic and perineal pain (principal)
CPT/HCPCS: 76830; 76856

== ENCOUNTER → 2020-06-26 10:01 | Outpatient (CLI) | payer OTHER, MEDICAID, SELFPAY ==
[2020-06-13 16:00] VITALS: BMI 34.1
[2020-06-26 10:45] LABS: Appearance Urine UA CLEAR; Bilirubin Urine UA NEGATIVE (NEGATIVE); Color Urine UA YELLOW; Glucose Urine UA NEGATIVE (Negative); Ketones Urine UA NEGATIVE (NEGATIVE); Leukocyte Esterase Urine UA NEGATIVE (NEGATIVE); Nitrite Urine UA NEGATIVE (Negative); Occult Blood Urine UA NEGATIVE (Negative); Protein Urine UA NEGATIVE (Negative); Urobilinogen Urine UA 0.2 E.U./dL (0.2)
[2020-06-26 10:47] LABS: pH Urine UA 5.5 (4.5-8.0)
[2020-07-04 12:58] LABS: Stone Analysis Source NOT PROVIDED
[2020-07-04 12:59] LABS: Size 3X3
[2020-07-04 13:00] LABS: Ca oxalate dihydrate 70; Ca oxalate monohydr 30
== END ==
PROVIDERS: PCP Family Medicine; Referring Provider Specialist; Visit Provider Specialist
DX: N20.0 Calculus of kidney (principal); N39.0 Urinary tract infection, site not specified
CPT/HCPCS: 81003; 82365

== ENCOUNTER → 2020-07-06 07:56 | Outpatient (CLI) | payer OTHER, MEDICAID, SELFPAY ==
[2020-06-13 16:00] VITALS: BMI 34.1
== END ==
PROVIDERS: PCP Family Medicine; Referring Provider Internal Medicine; Visit Provider Internal Medicine
DX: R63.5 Abnormal weight gain (principal)
CPT/HCPCS: 82533

== ENCOUNTER → 2020-10-16 15:16 | Outpatient (CLI) | payer OTHER, MEDICAID, SELFPAY ==
[2020-10-04 17:09] VITALS: BMI 34.1
[2020-10-16 17:30] LABS: Vitamin B12 > 1000 pg/mL (239-931)
== END ==
PROVIDERS: PCP Family Medicine; Referring Provider Family Medicine; Visit Provider Family Medicine
DX: R53.83 Other fatigue (principal)
CPT/HCPCS: 36415; 82607

== ENCOUNTER → 2020-10-30 15:22 | Outpatient (CLI) | payer OTHER, MEDICAID, SELFPAY ==
[2020-10-04 17:09] VITALS: BMI 34.1
--- NOTE | 2020-11-15 09:03 | P.HOLT.S_ITS ---
Door Machine Operator Report Referral & Results Date Patient Seen: 10/30/20 Requesting provider: Faith Cyr Indication: Palpitations Duration of monitoring (days): 8 Diary information: There were 117 patient triggered events and 34 patient diary entries Patient triggered events were associated with (within 45 seconds) sinus rhythm, PACs, and PVCs Patient diary events were associated with sinus rhythm only Data: Minimum heart rate identified was 50 beats per minute at 08:59 on 11/01/2020 Maximum heart rate was 191 beats per minute at 14:37 on 11/02/2020 Less than 1% of identified beats or either ventricular supraventricular ectopic in origin No other significant dysrhythmias identified Impression: Patient with rare PVCs and PACs. There is no clear correlation between patient reported symptoms (as per patient triggered events) and anyone single dysrhythmia. Patient did record 34 different entries in her diary with possible symptoms not associated with any dysrhythmia whatsoever. Clinical correlation suggested
== END ==
PROVIDERS: PCP Family Medicine; Referring Provider Family Medicine; Visit Provider Family Medicine
DX: R00.2 Palpitations (principal)
CPT/HCPCS: 93246; 93248

== ENCOUNTER → 2020-12-03 14:20 | Outpatient (CLI) | payer OTHER, MEDICAID, SELFPAY ==
[2020-10-04 17:09] VITALS: BMI 34.1
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
== END ==
PROVIDERS: PCP Family Medicine; Referring Provider Family Medicine; Visit Provider Family Medicine
DX: E28.2 Polycystic ovarian syndrome (principal); E72.12 Methylenetetrahydrofolate reductase deficiency; F50.81 Binge eating disorder; E66.9 Obesity, unspecified; Z68.35 Body mass index [BMI] 35.0-35.9, adult; Z71.3 Dietary counseling and surveillance
CPT/HCPCS: 97802

== ENCOUNTER → 2020-12-31 14:31 | Outpatient (CLI) | payer OTHER, MEDICAID, SELFPAY ==
[2020-10-04 17:09] VITALS: BMI 34.1
--- NOTE | 2020-12-31 15:28 | DIET.PN ---
Dietary Progress Note Telehealth f/u for 25y F c MTHFR gene mutation, PCOS, and binge eating pattern. Pt recently relocated to [facility] so hasn't been able to focus much on nutrition interventions. Pt has thought about the hunger scale some and gave a copy to her mom but feels she doesn't think about food during the day when she is on her ADHD medication. At about 4pm pts medication wears off and she gets really hungry and overeats until bedtime. Pt has been looking at foods containing enriched grain products including ultraprocessed foods. Pt found a [employer] white bread that is not enriched so is using at home. Pts boyfriend who she lives with is in appointment today as he cooks for the two of them. Pt has been feeling stress from their move so has been binging on [employer] and is day drinking water/vodka mix. Pt's boyfriend, Chad, has questions on how to cook for [place]olo and suggestions for figuring out good meals to support her. Chad has nutrition degree so some insight to healthy eating and physiology. Interventions: 1. To address pts inability to gauge hunger during the day, educated pt on the role of Intermittent Fasting on health. Because pt is only consuming juice, water/vodka mix, and a protein bar prior to 4pm, encouraged pt to formally fast for 13 hours most days from bedtime (midnight) to 1pm at which point she should have water and protein bar. Encouraged pt to reduce/eliminate juice and etoh during the day. Pt then can have lunch at 4pm and dinner around 8pm with a snack around bedtime to try to curb the urge to binge. 2. Reviewed label reading with pt and partner. Encouraged them to build their home pantry with foods not containing folic acid as ingredient. Pt looked at several food items in home to ensure they are not enriched. 3. To address pts tendency to binge on fast food and ultraprocessed foods, empathized c pt on palatability of UPFs and desire to soothe stress. Discussed ways pt can soothe stress without turning to food as often. [facility] pt read The Power of Habits by Naldo Shook for assistance with behavior change. Pts partner pulled the book off his bookshelf during our virtual visit. A friend had recommended it to him but he hadn't started it yet. Pt and partner will read the book outloud together. 4. To address pts picky eating and to encourage more home cooked meals containing whole food ingredients, encouraged pt and partner to make a list of acceptable fruit, veg, pro, cho. Pts partner can then highlight the foods he also enjoys so they have a pool of ingredients to keep in the home to act as substrate for accepted shared meals. telehealth f/u in 4w to assess progress and problem solve barriers
== END ==
PROVIDERS: PCP Family Medicine; Referring Provider Family Medicine; Visit Provider Family Medicine
DX: E28.2 Polycystic ovarian syndrome (principal); E72.12 Methylenetetrahydrofolate reductase deficiency
CPT/HCPCS: 97803

== ENCOUNTER → 2021-06-18 11:29 | Outpatient (CLI) | payer OTHER, MEDICAID, SELFPAY ==
[2020-10-04 17:09] VITALS: BMI 34.1
== END ==
PROVIDERS: PCP Family Medicine; Visit Provider Family Medicine
DX: R30.0 Dysuria (principal)
CPT/HCPCS: 87086

== ENCOUNTER → 2022-01-12 16:04 | Outpatient (CLI) | payer OTHER, MEDICAID, SELFPAY ==
[2020-10-04 17:09] VITALS: BMI 34.1
[2022-01-12 16:31] LABS: Add Manual Diff / Slide Review NO; Basophils Absolute Auto 0 /uL (0-100); Basophils Percent Auto 0.3 % (0-2); Eosinophils Absolute Auto 100 /uL (0-450); Hematocrit 36.5 % (36-46); Hemoglobin 12.5 g/dL (12.0-16.0); Lymphocytes Absolute Auto 2400 /uL (1100-4500); Lymphocytes Percent Auto 32.9 % (25-40); Mean Corpuscular HGB Conc 34.3 % (30-36); Mean Corpuscular Hemoglobin 29.2 PG (26-34); Mean Corpuscular Volume 85.1 fL (80-100); Monocytes Absolute Auto 500 /uL (0-900); Monocytes Percent Auto 6.6 % (3-14); Neutrophils Absolute Auto 4200 /uL (1500-7000); Neutrophils Percent Auto 59.2 % (50-75); Platelet Count 280 X10^3/uL (150-400); Red Blood Cell Count 4.28 X10^6/uL (4.0-5.2); Red Cell Distribution Width 13.2 % (11.6-14.8); White Blood Cell Count 7.2 X10^3/uL (4.5-11.0)
[2022-01-12 16:33] LABS: Prothrombin Time 10.5 SECONDS (10.1-12.7)
[2022-01-12 16:46] LABS: Alanine Aminotransferase 16 IU/L (<35); Albumin 4.9 g/dL (3.5-5.0); Albumin Globulin Ratio 1.6 (1.0-2.8); Alkaline Phosphatase 67 U/L (38-126); Aspartate Aminotransferase 24 IU/L (14-36); BUN Creatinine Ratio 12.2 (6-22); Bilirubin Total 0.5 mg/dL (0.2-1.3); Blood Urea Nitrogen 9 mg/dL (7-17); Calcium 9.1 mg/dL (8.4-10.2); Carbon Dioxide 26 mmol/L (22-32); Chloride 104 mmol/L (98-107); Estimated Glomerular Filt Rate > 60 mL/min (>60); Glucose 103 mg/dL (70-100); HEMOLYSIS < 15 (0-50); Potassium 4.1 mmol/L (3.4-5.1); Sodium 139 mmol/L (137-145); Total Protein 7.9 g/dL (6.3-8.2)
[2022-01-12 17:17] LABS: Thyroid Stimulating Hormone 0.163 uIU/mL (0.47-4.68)
[2022-01-13 10:23] LABS: Free T3, Triiodothyronine Free 3.64 pg/mL (2.77-5.27); Free T4, Direct Thyroxine 1.74 ng/dL (0.78-2.19)
== END ==
PROVIDERS: PCP Family Medicine; Referring Provider Family Medicine; Visit Provider Family Medicine
DX: R53.83 Other fatigue (principal); R79.89 Other specified abnormal findings of blood chemistry
CPT/HCPCS: 36415; 80053; 84439; 84443; 84481; 85025; 85610

== ENCOUNTER → 2022-09-14 10:38 | Outpatient (CLI) | payer OTHER, MEDICAID, SELFPAY ==
[2020-10-04 17:09] VITALS: BMI 34.1
[2022-09-14 11:59] LABS: Free T3, Triiodothyronine Free 4.01 pg/mL (2.77-5.27)
[2022-09-14 12:13] LABS: TSH w/ Reflex to FT4 0.42 uIU/mL (0.47-4.68)
[2022-09-14 12:17] LABS: Testosterone 122 ng/dL (5.71-77.0)
[2022-09-14 12:45] LABS: Free T4, Direct Thyroxine 1.47 ng/dL (0.78-2.19)
[2022-09-16 14:56] LABS: Anti Thyroglobulin Antibody <1.0 IU/mL (0.0-0.9); Thyroid Peroxidase Antibodies <9 IU/mL (0-34)
== END ==
PROVIDERS: PCP Family Medicine; Referring Provider Family Medicine; Visit Provider Family Medicine
DX: E03.9 Hypothyroidism, unspecified (principal); L68.9 Hypertrichosis, unspecified
CPT/HCPCS: 36415; 82627; 84403; 84439; 84443; 84481; 86376; 86800

== ENCOUNTER → 2022-09-30 07:27 | Outpatient (CLI) | payer OTHER, MEDICAID, SELFPAY ==
[2020-10-04 17:09] VITALS: BMI 34.1
--- NOTE | 2022-09-30 07:30 | DI.US.S_ITS ---
PROCEDURE: US PELVIC COMPLETE INDICATIONS: HISTORY OF POLYCYSTIC OVARIAN SYNDROME TECHNIQUE: Real-time scanning was performed of the pelvic organs, with image documentation. Additional endovaginal scanning was necessary due to incomplete visualization of the adnexal and endometrial structures by transabdominal scanning. COMPARISON: [facility], [place], US PELVIC COMPLETE, 03/12/2020, 15:09. FINDINGS: Uterus: Uterus is anteverted and normal in size at 5.9 x 4.1 x 3.4 cm. The myometrium is homogeneous. The endometrium measures 3.1 mm combined thickness. Ovaries: The right ovary measures 3.7 x 1.9 x 1.6 cm, with a calculated ovarian volume of 5.5 cc. The left ovary measures 2.9 x 2.4 x 2.0 cm, with a calculated ovarian volume of 7.2 cc. The ovaries have a normal sonographic appearance. There are approximately 12 follicles within the right ovary. No adnexal masses are seen. Other: No pathologic free abdominal or pelvic fluid. IMPRESSION: 1. Findings meet the [place] definition of polycystic ovaries. In the absence of ovulatory dysfunction or clinically/biochemically diagnosed hyperandrogenism, findings are nonspecific and do not indicate the presence of polycystic ovarian syndrome. 2. Otherwise unremarkable pelvic ultrasound. We strive to produce accurate, complete, and clear reports of imaging services. To assist us in improving patient care, this report was composed using standard report templates and voice recognition software. Therefore, it may contain abnormal punctuation, insertions and/or omissions. Occasional wrong-word or sound-alike substitutions may occur. Though we review the report and make efforts to correct it, we do recommend that the report be read carefully in proper context to recognize any text inaccuracies. Dictated by: Michelle Santos M.D. on 09/30/2022 at 9:55 Approved by: Michelle Santos M.D. on 09/30/2022 at 10:02
== END ==
PROVIDERS: PCP Family Medicine; Referring Provider Family Medicine; Visit Provider Family Medicine
DX: E72.12 Methylenetetrahydrofolate reductase deficiency (principal); E28.2 Polycystic ovarian syndrome; F41.9 Anxiety disorder, unspecified; F33.2 Major depressive disorder, recurrent severe without psychotic features; F90.9 Attention-deficit hyperactivity disorder, unspecified type
CPT/HCPCS: 76830; 76856; Q3014

== ENCOUNTER → 2022-10-13 12:10 | Outpatient (CLI) | payer OTHER, MEDICAID, SELFPAY ==
[2020-10-04 17:09] VITALS: BMI 34.1
[2022-10-13 14:40] LABS: Hemoglobin A1C% w Est Avg Glu 5.2 % (4.0-6.0)
[2022-10-13 15:16] LABS: Follicle Stimulating Hormone 4.51 mIU/mL; Luteinizing Hormone 28.3 mIU/mL
[2022-10-14 09:26] LABS: Insulin Level Total 13.1 uIU/mL (2.6-24.9)
[2022-10-17 04:04] LABS: Estriol,Serum <0.1 ng/mL (.); Estrone,Serum 177 pg/mL (27-231)
== END ==
PROVIDERS: PCP Family Medicine; Referring Provider Obstetrics & Gynecology; Visit Provider Obstetrics & Gynecology
DX: D68.51 Activated protein C resistance (principal); E28.2 Polycystic ovarian syndrome; L68.0 Hirsutism; N94.6 Dysmenorrhea, unspecified
CPT/HCPCS: 36415; 82670; 82677; 82679; 83001; 83002; 83036; 83525

== ENCOUNTER → 2022-11-10 11:10 | Outpatient (CLI) | payer OTHER, MEDICAID, SELFPAY ==
[2020-10-04 17:09] VITALS: BMI 34.1
[2022-11-10 13:35] LABS: Alanine Aminotransferase 20 IU/L (<35); Albumin 4.2 g/dL (3.5-5.0); Albumin Globulin Ratio 1.5 (1.0-2.8); Alkaline Phosphatase 65 U/L (38-126); Aspartate Aminotransferase 18 IU/L (14-36); BUN Creatinine Ratio 23.9 (6-22); Bilirubin Total 0.5 mg/dL (0.2-1.3); Blood Urea Nitrogen 16 mg/dL (7-17); Calcium 9.3 mg/dL (8.4-10.2); Carbon Dioxide 28 mmol/L (22-32); Chloride 102 mmol/L (98-107); Estimated Glomerular Filt Rate > 60 mL/min (>60); Globulin 2.8 g/dL (1.7-4.1); Glucose 95 mg/dL (70-100); HEMOLYSIS < 15 (0-50); Potassium 4.3 mmol/L (3.4-5.1); Sodium 138 mmol/L (137-145)
[2022-11-10 13:47] LABS: Prolactin 16.6 ng/mL (3.0-18.6)
[2022-11-10 13:49] LABS: Free T3, Triiodothyronine Free 3.89 pg/mL (2.77-5.27); Free T4, Direct Thyroxine 1.41 ng/dL (0.78-2.19)
[2022-11-10 14:01] LABS: Cortisol Random 8.02 ug/dL
[2022-11-10 14:03] LABS: Thyroid Stimulating Hormone 0.209 uIU/mL (0.47-4.68)
[2022-11-11 10:43] LABS: Thyroid Peroxidase Antibodies <9 IU/mL (0-34)
[2022-11-11 23:36] LABS: Anti Thyroglobulin Antibody <1.0 IU/mL (0.0-0.9)
[2022-11-12 20:07] LABS: Thyroid Stimulating Immunoglob < 0.10 IU/L (0.00-0.55)
[2022-11-13 12:21] LABS: Adrenocorticotropic Hormone 15.4 pg/mL (7.2-63.3)
[2022-11-14 09:21] LABS: Thyrotropin Receptor AB <1.10 IU/L (0.00-1.75)
[2022-11-17 11:23] LABS: Testosterone Free 0.56 ng/dL (0.10-0.85)
== END ==
PROVIDERS: PCP Family Medicine; Referring Provider Internal Medicine Endocrinology, Diabetes & Metabolism; Visit Provider Internal Medicine Endocrinology, Diabetes & Metabolism
DX: E28.1 Androgen excess (principal); L68.0 Hirsutism; E28.2 Polycystic ovarian syndrome; R79.89 Other specified abnormal findings of blood chemistry
CPT/HCPCS: 36415; 80053; 82024; 82533; 82627; 83498; 83520; 84146; 84402; 84403; 84439; 84443; 84445; 84481; 86376; 86800

== ENCOUNTER → 2022-11-16 09:04 | Outpatient (CLI) | payer OTHER, MEDICAID, SELFPAY ==
[2020-10-04 17:09] VITALS: BMI 34.1
[2022-11-19 12:24] LABS: Cortisol Fr ug/24hr urine 22 ug/24 hr (6-42); Cortisol, Free, Urine 22 ug/L (Undefined)
== END ==
PROVIDERS: PCP Family Medicine; Referring Provider Internal Medicine Endocrinology, Diabetes & Metabolism; Visit Provider Internal Medicine Endocrinology, Diabetes & Metabolism
DX: L68.0 Hirsutism (principal)
CPT/HCPCS: 82530; 82533

== ENCOUNTER → 2022-12-30 11:53 | Outpatient (CLI) | payer OTHER, MEDICAID, SELFPAY ==
[2020-10-04 17:09] VITALS: BMI 34.1
--- NOTE | 2022-12-30 11:56 | DI.CT.S_ITS ---
PROCEDURE: CT ABDOMEN ADRENAL PROTOCOL INDICATIONS: Androgen excess TECHNIQUE: Noncontrast 3 mm thick sections acquired from the diaphragms to the iliac crests. After the administration of intravenous contrast, 3 mm thick venous-phase and 15-minute delayed images acquired from the diaphragms to the iliac crests. For radiation dose reduction, the following was used: automated exposure control, adjustment of mA and/or kV according to patient size. COMPARISON: None. FINDINGS: Image quality: Excellent. Lung bases: Lung bases are clear. Heart size is normal. Adrenal glands: No adrenal nodules. Solid organs: Liver is normal in size and enhancement. Gallbladder is unremarkable . Biliary system is non dilated. Pancreas enhances normally. Spleen is normal in size and enhancement. Kidneys are normal in size and enhancement. There is a 6 mm stone within the right ureteropelvic junction (560 HU). Symmetric enhancement of the kidneys, without hydronephrosis. Moderate burden of bilateral, punctate stones otherwise. Peritoneum and bowel: Unenhanced bowel loops are normal in caliber and wall thickness. No free fluid or air. Nodes and vessels: No retroperitoneal or mesenteric adenopathy by size criteria. Aorta and inferior vena cava are normal in size. Miscellaneous: No ventral hernias. Bones: No suspicious bony lesions. No vertebral body compression fractures. IMPRESSION: No adrenal nodules. Nonobstructing 6 mm stone within the right ureteropelvic junction. Dictated by: Lex Barrett M.D. on 12/30/2022 at 13:45 Approved by: Lex Barrett M.D. on 12/30/2022 at 13:48
== END ==
PROVIDERS: PCP Family Medicine; Referring Provider Internal Medicine Endocrinology, Diabetes & Metabolism; Visit Provider Internal Medicine Endocrinology, Diabetes & Metabolism
DX: E28.1 Androgen excess (principal); N20.1 Calculus of ureter
CPT/HCPCS: 74170

== ENCOUNTER → 2023-01-13 10:12 | Outpatient (CLI) | payer OTHER, MEDICAID, SELFPAY ==
[2023-01-11 11:40] VITALS: BMI 34.1
== END ==
PROVIDERS: PCP Family Medicine; Visit Provider Physician Assistant
DX: N20.0 Calculus of kidney (principal); R39.9 Unspecified symptoms and signs involving the genitourinary system
CPT/HCPCS: 81002; 87086; 87210

== ENCOUNTER → 2023-03-15 13:59 | Outpatient (CLI) | payer OTHER, MEDICAID, SELFPAY ==
[2023-03-10 11:58] VITALS: BMI 34.1
--- NOTE | 2023-03-15 14:00 | DI.RAD.S_ITS ---
PROCEDURE: XR KUB INDICATIONS: possible kidney stones TECHNIQUE: One view of the abdomen acquired. COMPARISON: [facility], CT, CT ABDOMEN ADRENAL PROTOCOL, 12/30/2022, 12:10. FINDINGS: Surgical changes and devices: None. Bowel: Bowel gas pattern is normal. Soft tissues: No suspicious abdominal calcifications. Visualized solid organ contours appear normal in size. The subtle small stones seen on the recent adrenal protocol CT are not seen on this supine abdominal film, in which there is gas and fecal debris overlying the kidneys. Bones: No suspicious bony lesions. IMPRESSION: The small renal stones seen on the previous CT are not identified on the study. Dictated by: Shekhar Davis M.D. on 03/15/2023 at 15:01 Approved by: Shkehar Davis M.D. on 03/15/2023 at 15:03
== END ==
PROVIDERS: PCP Family Medicine; Referring Provider Specialist; Visit Provider Specialist
DX: R39.9 Unspecified symptoms and signs involving the genitourinary system
CPT/HCPCS: 74018

== ENCOUNTER 2023-11-09 06:55 | Emergency (ER) | payer OTHER, MEDICAID, SELFPAY ==
[2023-03-10 11:58] VITALS: BMI 34.1
[2023-11-09] VITALS (13 sets, daily range): BP systolic 112–140; BP diastolic 59–79; PULSE 103–120; RESP 24; TEMP 36.4; O2SAT 95–100; BMI 30.7
[2023-11-09] MEDS: KETOROLAC 30 MG/ML VIAL 15 MG IV (07:10)
[2023-11-09] MEDS: ONDANSETRON 4 MG/2 ML INJ IV (07:11)
--- NOTE | 2023-11-09 07:11 | PC.NURSE ---
see triage note, pain left flank woke pt about 0400
[2023-11-09 07:14] LABS: Add Manual Diff / Slide Review NO; Basophils Absolute Auto 0 /uL (0-100); Basophils Percent Auto 0.1 % (0-2); Eosinophils Absolute Auto 100 /uL (0-450); Eosinophils Percent Auto 0.4 % (2-4); Hematocrit 37.7 % (36-46); Lymphocytes Absolute Auto 2400 /uL (1100-4500); Lymphocytes Percent Auto 15.4 % (25-40); Mean Corpuscular HGB Conc 34.5 % (30-36); Mean Corpuscular Hemoglobin 28.9 PG (26-34); Mean Corpuscular Volume 83.9 fL (80-100); Monocytes Absolute Auto 800 /uL (0-900); Monocytes Percent Auto 5.3 % (3-14); Neutrophils Absolute Auto 12100 /uL (1500-7000); Neutrophils Percent Auto 78.8 % (50-75); Platelet Count 299 X10^3/uL (150-400); Red Blood Cell Count 4.49 X10^6/uL (4.0-5.2); Red Cell Distribution Width 13.4 % (11.6-14.8); White Blood Cell Count 15.4 X10^3/uL (4.5-11.0)
--- NOTE | 2023-11-09 07:16 | ED.ABDPAIN ---
HPI - Abdominal Pain General Chief Complaint: Urogenital-Female Stated Complaint: poss kidney stone Time Seen by Provider: 11/09/23 07:01 Source: patient Mode of arrival: Ambulatory Limitations: no limitations History of Present Illness HPI narrative: 28-year-old female with history of kidney stones, ADHD, diabetes type 2, bipolar disorder anxiety who presents with of sudden onset of left flank pain that started 4:00 a.m. this morning radiating from the left flank around to the front patient states feels very similar to prior kidney stones. No fevers or chills. She has had nausea and vomiting this morning. No chest pain or shortness of breath. Denies any right-sided pain. Patient states her urine has been dark and a little bit more defers, she denies dysuria or urgency. She states she has had a little bit of frequency but also states she has on a diuretic and this is baseline. States she has had some diarrhea, no black or bloody stools. No new vaginal bleeding or discharge. She has passed her kidney stones in the past without assistance but no she has a large kidney stone on the right. She was scheduled to have surgical removal but states ?she chicken down? and did not have it removed. Patient states only other surgeries or wisdom teeth. She has allergies to latex, nickel, omeprazole and adhesive tape. Patient states she is seen Urology here locally in the past year does not recall their name. No tobacco, alcohol or recreational drugs. Patient is accompanied by her father. Related Data Home Medications Medication Instructions Recorded Confirmed liraglutide 0.6 mg/0.1 mL (18 mg/3 mg SUBCUT Type 2 Diabetes 11/01/23 11/01/23 mL) subcutaneous pen injector (Victoza 2-Gaurav) methimazole 5 mg tablet 5 mg PO DAILY Hyperthyroidism 11/01/23 11/01/23 spironolactone 25 mg/5 mL oral mg PO Hiritusm 11/01/23 11/01/23 suspension Previous Rx's Medication Instructions Recorded ketorolac 10 mg tablet 10 mg PO Q8H PRN menstrual pain 4 10/13/22 days #14 tabs hydrocodone 5 mg-acetaminophen 325 1 tab PO Q4-6H PRN migraine 09/17/23 mg tablet headache #10 tabs amoxicillin 875 mg-potassium 1 tab PO BID #10 tabs 11/08/23 clavulanate 125 mg tablet methylphenidate HCl 36 mg 36 mg PO DAILY #30 tabs 11/08/23 tablet,extended release 24 hr zolpidem 10 mg tablet 10 mg PO BEDTIME PRN insomnia #30 11/08/23 tabs levofloxacin 750 mg tablet 750 mg PO DAILY 7 days #7 tabs 11/09/23 oxycodone 5 mg tablet 5 mg PO QID PRN pain #10 tabs 11/09/23 tamsulosin 0.4 mg capsule (Flomax) 0.4 mg PO DAILY #7 caps 11/09/23 Allergies Allergy/AdvReac Type Severity Reaction Status Date / Time latex [LATEX] Allergy Mild Verified 11/01/23 15:03 nickel [NICKEL] Allergy Mild Verified 11/01/23 15:03 omeprazole [OMEPRAZOLE] AdvReac Severe STOMACH Verified 11/01/23 15:03 CRAMPING, NAUSEA adhesive tape AdvReac Mild ITCHY - Verified 11/01/23 15:03 PAPER TAPE metformin AdvReac Diarrhea Verified 11/01/23 15:03 Review of Systems Review of Systems ROS Unobtainable: All systems reviewed & are unremarkable except as noted in HPI and below Patient History Medical History History of nephrolithiasis Right ureteral calculus Factor 5 Leiden mutation, heterozygous Lower urinary tract symptoms (LUTS) History of UTI History of nephrolithiasis Nephrolithiasis Vaginal discharge Screen for STD (sexually transmitted disease) Suicide attempt Hip pain (2006) Depression (05/04/07) Anxiety (03/2006) Migraines Chronic headaches Hip tendonitis (2006) Keratosis pilaris (01/21/09) Acne Factor V Leiden Kidney stones (02/26/13) Surgical History Anesthesia History of third molar tooth extraction Family History Father Age: 65 Hypertension High cholesterol Grandfather Cancer Lung cancer Smoking Grandmother Obesity Heart disease Dementia Alcohol abuse Mother Obesity Grandfather Complication of surgery Grandmother No problems noted. Family/Other Uterine cancer Social History household members: family Smoking Status: Never smoker alcohol intake: former substance use type: does not use Smoking Status: Never smoker alcohol intake frequency: a few times a month Substance Use Type: does not use, methamphetamine, prescription drug and other Exam Narrative Exam Narrative: GENERAL: Alert and oriented x three, female in moderate distress. HEENT: Head normocephalic, atraumatic, EOMI, pupils reactive, face symmetric, moist mucous membranes NECK: Supple, full range of motion CARDIOVASCULAR: Regular rate and rhythm without murmurs, rubs or gallops. RESPIRATORY: Breath sounds equal bilaterally, no wheezes rales or rhonchi. ABDOMEN: Soft, nontender. Normoactive bowel sounds all 4 quadrants. No guarding or rebound, rigidity, no mass : No CVA tenderness bilaterally. EXTREMITIES: Normal range of motion, no clubbing or edema. Neurovascularly intact NEUROLOGICAL: Cranial nerves II through XII grossly intact. Moving all extremities SKIN: Warm, dry, no petechiae, no rashes or lesions. Initial Vital Signs Initial Vital Signs: Vital Signs Temperature 97.6 F 11/09/23 07:02 Pulse Rate 120 H 11/09/23 07:02 Respiratory Rate 24 11/09/23 07:02 Blood Pressure 112/79 11/09/23 07:02 Pulse Oximetry 98 11/09/23 07:02 Oxygen Delivery Method Room Air 11/09/23 07:02 Course Orders Ordered: ED Orders 11/09/23 07:07 CBC Auto Diff [Complete Blood Count AUTO DIFF] Stat CMP [Comprehensive Metabolic Panel] Stat Lipase Stat Test Serum,Qual Stat 11/09/23 07:24 US renal complete Stat 11/09/23 10:50 Ictotest Urine Stat Urinalysis and Microscopic Stat Urine Culture Stat Discontinued Medications Sodium Chloride (Normal Saline 0.9%) 1,000 mls @ 1,000 mls/hr IV BOLUS ONE Stop: 11/09/23 08:23 Last Infusion: 11/09/23 10:08 Dose: Infused Documented By: Admin: 11/09/23 07:37 Dose: 1,000 mls/hr Documented By: BRIONNA Lidocaine HCl 6 ml/ Sodium (Chloride) 56 mls @ 336 mls/hr IV NOW ONE Stop: 11/09/23 09:14 Last Infusion: 11/09/23 10:41 Dose: Infused Documented By: Admin: 11/09/23 10:22 Dose: 336 mls/hr Documented By: ROSSY Sodium Chloride (Normal Saline 0.9%) 1,000 mls @ 1,000 mls/hr IV BOLUS ONE Stop: 11/09/23 10:12 Last Infusion: 11/09/23 10:10 Dose: Infused Documented By: Admin: 11/09/23 09:21 Dose: 1,000 mls/hr Documented By: ROSSY Ketorolac Tromethamine (Ketorolac 30 Mg/Ml Vial) 15 mg IV NOW ONE Stop: 11/09/23 07:02 Last Admin: 11/09/23 07:10 Dose: 15 mg Documented By: SOFIYA Levofloxacin (Levofloxacin 250 Mg Tablet) 750 mg PO NOW ONE Stop: 11/09/23 11:03 Last Admin: 11/09/23 11:12 Dose: 750 mg Documented By: ROSSY Ondansetron HCl (Ondansetron 4 Mg/2 Ml Inj) 4 mg IV Q6HR PRN PRN Reason: Nausea And Vomiting Last Admin: 11/09/23 07:11 Dose: 4 mg Documented By: SOFIYA Vital Signs Vital signs: Vital Signs - 8 hr 11/09/23 07:02 11/09/23 07:05 11/09/23 07:30 Temperature 97.6 F Pulse Rate 120 H 117 H 107 H Respiratory Rate 24 Blood Pressure 112/79 Pulse Oximetry 98 100 95 Oxygen Delivery Method Room Air 11/09/23 07:33 11/09/23 07:33 11/09/23 08:00 Temperature Pulse Rate 109 H 103 H Respiratory Rate Blood Pressure 123/79 Pulse Oximetry 98 100 Oxygen Delivery Method 11/09/23 08:30 11/09/23 09:00 11/09/23 09:21 Temperature Pulse Rate 113 H 111 H Respiratory Rate Blood Pressure 122/61 Pulse Oximetry 98 100 Oxygen Delivery Method 11/09/23 09:21 11/09/23 09:30 11/09/23 09:30 Temperature Pulse Rate 114 H 103 H Respiratory Rate Blood Pressure 121/59 L Pulse Oximetry 100 100 Oxygen Delivery Method 11/09/23 10:00 11/09/23 10:00 11/09/23 10:30 Temperature Pulse Rate 120 H 110 H Respiratory Rate Blood Pressure 121/61 Pulse Oximetry 100 100 Oxygen Delivery Method 11/09/23 10:31 11/09/23 10:31 11/09/23 11:15 Temperature Pulse Rate 116 H Respiratory Rate Blood Pressure 140/63 126/62 Pulse Oximetry 100 Oxygen Delivery Method 11/09/23 11:15 Temperature Pulse Rate 109 H Respiratory Rate Blood Pressure Pulse Oximetry 100 Oxygen Delivery Method MDM - Abdominal Pain Lab Data 11/09/23 07:07 11/09/23 07:07 Labs: Lab Results 11/09/23 11/09/23 Range/Units 07:07 10:50 WBC 15.4 H (4.5-11.0) X10^3/uL RBC 4.49 (4.0-5.2) X10^6/uL Hgb 13.0 (12.0-16.0) g/dL Hct 37.7 (36-46) % MCV 83.9 (80-100) fL MCH 28.9 (26-34) PG MCHC 34.5 (30-36) % RDW 13.4 (11.6-14.8) % Plt Count 299 (150-400) X10^3/uL Neut % (Auto) 78.8 H (50-75) % Lymph % (Auto) 15.4 L (25-40) % [place] % (Auto) 5.3 (3-14) % Eos % (Auto) 0.4 L (2-4) % Baso % (Auto) 0.1 (0-2) % Neut # (Auto) 25899 H (1425-6693) /uL Lymph # (Auto) 2400 (9648-8532) /uL [place] # (Auto) 800 (0-900) /uL Eos # (Auto) 100 (0-450) /uL Baso # (Auto) 0 (0-100) /uL Sodium 138 (137-145) mmol/L Potassium 4.1 (3.4-5.1) mmol/L Chloride 106 (98-107) mmol/L Carbon Dioxide 17 L (22-32) mmol/L BUN 17 (7-17) mg/dL Creatinine 0.89 (0.52-1.04) mg/dL Estimated GFR > 60 (>60) mL/min BUN/Creatinine Ratio 19.1 (6-22) Glucose 107 H (70-100) mg/dL Calcium 10.1 (8.4-10.2) mg/dL Total Bilirubin 1.3 (0.2-1.3) mg/dL AST 22 (14-36) IU/L ALT 17 (<35) IU/L Alkaline Phosphatase 69 (38-126) U/L Total Protein 8.2 (6.3-8.2) g/dL Albumin 4.9 (3.5-5.0) g/dL Globulin 3.3 (1.7-4.1) g/dL Albumin/Globulin Ratio 1.5 (1.0-2.8) Lipase 150 (23-300) U/L Serum , Qual Negative (Negative) Urine Color [place] Urine Appearance Sl cloudy Urine pH TNP Ur Specific [place] TNP Urine Protein TNP Urine Glucose (UA) TNP Urine Ketones TNP Urine Occult Blood TNP Urine Nitrate TNP Urine Bilirubin TNP Ur Bilirubin Confirm Negative (Negative) Urine Urobilinogen TNP Ur Leukocyte Esterase TNP Urine RBC 30-100/hpf H (0-5/HPF) Urine WBC 10-30/hpf H (0-5/HPF) Ur Squamous Epith Cells 5-10 /hpf H (0-5/HPF) Urine Bacteria Few (2-10) H (None) Urine Mucus 1+ H (Negative) Ur Culture Indicated? Specimen cultured Vol Urine Centrifuged 10ml (spun) Point of care testing: Urine Dip Bedside Urine Glucose 250 mg/dl Bedside Urine Bilirubin +++ 4 Bedside Urine Ketone +++ 80 Urine Specific [place] 1.030 Bedside Urine Occult Blood +++ Bedside Urine pH 5.0 Bedside Urine Protein ++ 100 Bedside Urine Urobilinogen 3+ 8mg Bedside Urine Nitrite + Positive Bedside Urine Leukocytes +++ 500 Esterase Imaging Data renal US: Radiologist's Impression: Close Renal Ultrasound (Signed) Fam Moreno - 11/09/23 Launch?[address] [address] Ultrasound Report Signed Patient: Paolo Holley MR#: [id number] : 1995 Acct:[id number] Age/Sex: 28 / F Date of Service: 11/09/23 Loc: ED Accession Number: [id number] Procedure: US renal complete Ordering Provider: Nica Coronado D.O. PROCEDURE: US RENAL COMPLETE INDICATIONS: LEFT FLANK PAIN. HISTORY OF KIDNEY STONES. TECHNIQUE: Real-time scanning was performed of the kidneys and bladder, with image documentation. COMPARISON: [facility], CT, CT KIDNEY URETER BLADDER (KUB), 10/28/2019, 11:35. [facility], CT, CT ABDOMEN ADRENAL PROTOCOL, 12/30/2022, 12:10. [facility], US, US RENAL COMPLETE, 01/26/2020, 15:48. FINDINGS: Kidneys: Kidneys are normal in size. Right kidney measures 9.4 cm long; left kidney measures 11.5 cm long. Right renal cortical thickness is 2.1 cm; left renal cortical thickness is 1.3 cm. Renal cortical echotexture is normal. No suspicious solid mass lesions. There is mild left hydronephrosis. No left-sided renal stone or ureteral stone visualized. No hydronephrosis on the right. Redemonstration of previously described right ureteropelvic junction stone measuring approximately 1.2 x 0.9 cm in size. Bladder: The patient was not prepped for this study. Pre-void bladder volume is 11 mL. Visualized bladder appears unremarkable. Ureteral jets were not visualized on this examination. Miscellaneous: Study limited secondary to moderate amount of bowel gas. No free pelvic fluid. IMPRESSION: 1. Mild left hydronephrosis without evidence for obstructing stone. 2. Nonobstructing 1.2 x 0.9 cm right ureteropelvic junction stone without evidence for right-sided hydronephrosis. 3. No obvious abnormalities identified in the urinary bladder. The urinary bladder was not prepped for the examination with prevoid volume of approximately 11 mL. Dictated by: Fam Moreno M.D. on 11/09/2023 at 8:06 Approved by: Fam Moreno M.D. on 11/09/2023 at 8:12 [facility] Narrative Medical decision making narrative: 28-year-old female with history that is seems most consistent with kidney stone with past history of ureterolithiasis. Patient has left-sided flank pain, has a known renal stone on the right which he states is large and was supposed to be surgically removed pain side. Nausea or vomiting, no fevers. Patient has a white count of 15.4, hemoglobin of 13 with platelets of 299 predominance of neutrophils. CMP sodium 138 potassium 4 1 chloride 106 CO2 of 12 BUN 17 with a creatinine of 0.89 glucose of 107 LFTs are negative. Lipase is 150. Urine urine positive for bilirubin, ketones, 3+ blood, protein, positive for nitrates positive for leukocyte esterase. Microscopy is negative Renal US-mild left hydro, no left-sided renal stone or urethral stone visualized, no hydro in the right redemonstration of previously described right ureteropelvic junction stone measuring 1.2 x 0.9 cm in size. Visualized bladder appears unremarkable, ureteral jets were not visualized but patient was not prepped for study prevoid bladder is 11 mL. Patient received Toradol, Zofran fluids. Had some improvement right away but symptoms returned sometime later. Was given lidocaine has had significant improvement again. Patient is feeling improved she has been afebrile was tachycardic on arrival but has not improved. Did have a white count of 15 but overall appears very well. Patient does not appear septic I do not think she has a septic obstructive stone at this point but did give strict return precautions. We will start patient on oral antibiotics, Flomax and pain medication. Discussed with patient she has recently been on Augmentin she is picked up a refill for this for a sinus infection discussed to hold this medication and take Levaquin instead. Was also given referral back to Urology as she still has a stone on the right which require surgical intervention which she has delayed. Discharge Plan Departure Patient Disposition: Home Clinical Impression: Kidney stone, UTI (urinary tract infection) Activity Restrictions/Additional Instructions: Your imaging does not show a clear stone on the left but I suspect you do have a small stone, the large stone is still present on the right side. Your urine also shows signs of infection. If your symptoms do not significantly improve over the next day or 2 please follow up with Urology. Please call the contact included below. Take antibiotics until completed. Did not start the Augmentin, take Levaquin until completed. Take Flomax once daily until gone. You may take Tylenol up to a 1000 mg every 6 hours and/or ibuprofen up to 600 mg every 6 hours. If inadequate for pain control you can take oxycodone 1-2 tablets every 6 hours as needed. This medication can make you sleepy do not drive, perform hazardous activities or make any major decisions while taking it. This medication will make you constipated please take a stool softener once to twice daily until stools are soft and regular. [facility] [place] Please return for fevers, persistent vomiting, rapidly worsening pain, lightheadedness or passing out or other new or concerning changes. Prescriptions: New levofloxacin 750 mg tablet 750 mg PO DAILY 7 Days Qty: 7 0RF tamsulosin [Flomax] 0.4 mg capsule 0.4 mg PO DAILY Qty: 7 0RF oxycodone 5 mg tablet 5 mg PO QID PRN (Reason: pain) Qty: 10 0RF No Action methimazole 5 mg tablet 5 mg PO DAILY Victoza 2-Gaurav 0.6 mg/0.1 mL (18 mg/3 mL) pen injector SUBCUT Patient Comments: 1.8mg daily spironolactone 25 mg/5 mL suspension PO zolpidem 10 mg tablet 10 mg PO BEDTIME PRN (Reason: insomnia) Qty: 30 0RF methylphenidate HCl 36 mg tablet extended release 24hr 36 mg PO DAILY Qty: 30 0RF hydrocodone-acetaminophen 5-325 mg tablet 1 tab PO Q4-6H PRN (Reason: migraine headache) Qty: 10 0RF amoxicillin-pot clavulanate 875-125 mg tablet 1 tab PO BID Qty: 10 0RF ketorolac 10 mg tablet 10 mg PO Q8H PRN (Reason: menstrual pain) 4 Days Qty: 14 2RF Referrals: Faith Cyr MD [Primary Care Provider] - Mook Carney MD [Physician] - Stand Alone Forms: Patient Portal/API
--- NOTE | 2023-11-09 07:24 | DI.US.S_ITS ---
PROCEDURE: US RENAL COMPLETE INDICATIONS: LEFT FLANK PAIN. HISTORY OF KIDNEY STONES. TECHNIQUE: Real-time scanning was performed of the kidneys and bladder, with image documentation. COMPARISON: [facility], CT, CT KIDNEY URETER BLADDER (KUB), 10/28/2019, 11:35. [facility], CT, CT ABDOMEN ADRENAL PROTOCOL, 12/30/2022, 12:10. [facility], US, US RENAL COMPLETE, 01/26/2020, 15:48. FINDINGS: Kidneys: Kidneys are normal in size. Right kidney measures 9.4 cm long; left kidney measures 11.5 cm long. Right renal cortical thickness is 2.1 cm; left renal cortical thickness is 1.3 cm. Renal cortical echotexture is normal. No suspicious solid mass lesions. There is mild left hydronephrosis. No left-sided renal stone or ureteral stone visualized. No hydronephrosis on the right. Redemonstration of previously described right ureteropelvic junction stone measuring approximately 1.2 x 0.9 cm in size. Bladder: The patient was not prepped for this study. Pre-void bladder volume is 11 mL. Visualized bladder appears unremarkable. Ureteral jets were not visualized on this examination. Miscellaneous: Study limited secondary to moderate amount of bowel gas. No free pelvic fluid. IMPRESSION: 1. Mild left hydronephrosis without evidence for obstructing stone. 2. Nonobstructing 1.2 x 0.9 cm right ureteropelvic junction stone without evidence for right-sided hydronephrosis. 3. No obvious abnormalities identified in the urinary bladder. The urinary bladder was not prepped for the examination with prevoid volume of approximately 11 mL. Dictated by: Fam Moreno M.D. on 11/09/2023 at 8:06 Approved by: Fam Moreno M.D. on 11/09/2023 at 8:12
[2023-11-09 07:30] LABS: Alanine Aminotransferase 17 IU/L (<35); Albumin 4.9 g/dL (3.5-5.0); Albumin Globulin Ratio 1.5 (1.0-2.8); Alkaline Phosphatase 69 U/L (38-126); Aspartate Aminotransferase 22 IU/L (14-36); BUN Creatinine Ratio 19.1 (6-22); Bilirubin Total 1.3 mg/dL (0.2-1.3); Blood Urea Nitrogen 17 mg/dL (7-17); Calcium 10.1 mg/dL (8.4-10.2); Carbon Dioxide 17 mmol/L (22-32); Chloride 106 mmol/L (98-107); Estimated Glomerular Filt Rate > 60 mL/min (>60); Globulin 3.3 g/dL (1.7-4.1); Glucose 107 mg/dL (70-100); HEMOLYSIS < 15 (0-50); Lipase 150 U/L (23-300); Potassium 4.1 mmol/L (3.4-5.1); Sodium 138 mmol/L (137-145); Total Protein 8.2 g/dL (6.3-8.2)
[2023-11-09] MEDS: SODIUM CHLORIDE 0.9% 1,000 ML 1000 ML IV ×2 (07:37→09:21)
[2023-11-09 09:24] LABS: Pregnancy Test Serum,Qual Negative (Negative)
[2023-11-09] MEDS: LIDOCAINE 2% (PF) 6 ML in SODIUM CHLORIDE 0.9% 50 ML 336 ML IV (10:22)
[2023-11-09 11:06] LABS: Ictotest Urine Negative (Negative)
[2023-11-09 11:09] LABS: Appearance Urine UA SL CLOUDY
[2023-11-09] MEDS: levoFLOXacin 250 MG TABLET 750 MG PO (11:12)
[2023-11-09 11:17] LABS: Color Urine UA ORANGE
[2023-11-09 11:18] LABS: RBC Urine 30-100/HPF (0-5/HPF); Urine Volume 10mL (spun)
[2023-11-09 11:19] LABS: Bacteria Urine Few (2-10); Culture Indicated Urine Specimen Cultured; Mucus Urine 1+ (Negative); Squamous Epithelial Cell Urine 5-10 /HPF (0-5/HPF); WBC Urine 10-30/HPF (0-5/HPF)
== END 2023-11-09 11:24 | disposition home or self-care (01) ==
PROVIDERS: Emergency Provider Emergency Medicine; PCP Family Medicine
DX: N20.0 Calculus of kidney (principal); N39.0 Urinary tract infection, site not specified
CPT/HCPCS: 36415; 51798; 76770; 80053; 81001; 81003; 83690; 84703; 85025; 87086; 96361; 96365; 96375; 99284; J1885; J2405

== ENCOUNTER → 2023-12-03 09:07 | Outpatient (CLI) | payer OTHER, MEDICAID, SELFPAY ==
[2023-03-10 11:58] VITALS: BMI 34.1
[2023-12-03 11:11] LABS: Appearance Urine UA CLOUDY; Bilirubin Urine UA NEGATIVE (NEGATIVE); Color Urine UA YELLOW; Glucose Urine UA NEGATIVE (Negative); Ketones Urine UA TRACE (NEGATIVE); Leukocyte Esterase Urine UA NEGATIVE (NEGATIVE); Nitrite Urine UA NEGATIVE (Negative); Occult Blood Urine UA 3+ (Negative); Protein Urine UA 2+ (Negative); Specific Gravity Urine UA >=1.030 (1.000-1.035); Urobilinogen Urine UA 0.2 E.U./dL (0.2)
[2023-12-03 11:34] LABS: Amorphous Sediment Urine 2+; Bacteria Urine None Seen; Calcium Oxalate Crystals Urine Few; Culture Indicated Urine Cult Not Indicated; RBC Urine 5-10/HPF (0-5/HPF); Squamous Epithelial Cell Urine 0-1 /HPF (0-5/HPF); Urine Volume 10mL (spun); WBC Urine 0-1/HPF (0-5/HPF)
== END ==
PROVIDERS: PCP Family Medicine; Referring Provider Family Medicine; Visit Provider Family Medicine
DX: R30.0 Dysuria (principal); R39.9 Unspecified symptoms and signs involving the genitourinary system
CPT/HCPCS: 81001; 87086

== ENCOUNTER → 2024-05-03 10:57 | Outpatient (CLI) | payer OTHER, MEDICAID, SELFPAY ==
[2023-03-10 11:58] VITALS: BMI 34.1
[2024-05-03 11:51] LABS: Add Manual Diff / Slide Review NO; Basophils Absolute Auto 0 /uL (0-100); Basophils Percent Auto 0.3 % (0-2); Eosinophils Absolute Auto 100 /uL (0-450); Eosinophils Percent Auto 0.8 % (2-4); Hematocrit 35.8 % (36-46); Hemoglobin 12.4 g/dL (12.0-16.0); Lymphocytes Absolute Auto 2400 /uL (1100-4500); Mean Corpuscular HGB Conc 34.5 % (30-36); Mean Corpuscular Hemoglobin 29.5 PG (26-34); Mean Corpuscular Volume 85.5 fL (80-100); Monocytes Absolute Auto 800 /uL (0-900); Monocytes Percent Auto 7.6 % (3-14); Neutrophils Absolute Auto 6700 /uL (1500-7000); Neutrophils Percent Auto 67.3 % (50-75); Platelet Count 344 X10^3/uL (150-400); Red Blood Cell Count 4.19 X10^6/uL (4.0-5.2); Red Cell Distribution Width 12.8 % (11.6-14.8)
[2024-05-03 12:44] LABS: Alanine Aminotransferase 33 IU/L (<35); Albumin 4.2 g/dL (3.5-5.0); Albumin Globulin Ratio 1.4 (1.0-2.8); Alkaline Phosphatase 67 U/L (38-126); Aspartate Aminotransferase 24 IU/L (14-36); BUN Creatinine Ratio 17.3 (6-22); Bilirubin Total 0.5 mg/dL (0.2-1.3); Blood Urea Nitrogen 13 mg/dL (7-17); Calcium 9.3 mg/dL (8.4-10.2); Carbon Dioxide 24 mmol/L (22-32); Chloride 105 mmol/L (98-107); Estimated Glomerular Filt Rate > 60 mL/min (>60); Glucose 103 mg/dL (70-100); HEMOLYSIS < 15 (0-50); Potassium 4.1 mmol/L (3.4-5.1); Sodium 136 mmol/L (137-145); Total Protein 7.2 g/dL (6.3-8.2)
[2024-05-03 14:19] LABS: TSH w/ Reflex to FT4 0.38 uIU/mL (0.47-4.68)
[2024-05-03 21:55] LABS: Free T4, Direct Thyroxine 1.31 ng/dL (0.78-2.19)
== END ==
LOC: LAB 11:00
PROVIDERS: PCP Family Medicine; Referring Provider Family Medicine; Visit Provider Family Medicine
DX: R53.83 Other fatigue (principal); F10.10 Alcohol abuse, uncomplicated; E28.2 Polycystic ovarian syndrome; Z13.1 Encounter for screening for diabetes mellitus; Z77.011 Contact with and (suspected) exposure to lead; R42 Dizziness and giddiness
CPT/HCPCS: 36415; 80053; 83036; 83655; 84439; 84443; 85025

== ENCOUNTER → 2024-11-14 14:00 | Outpatient (CLI) | payer MEDICARE, MEDICAID, SELFPAY ==
[2023-03-10 11:58] VITALS: BMI 34.1
--- NOTE | 2024-11-22 10:53 | DIET.CONS ---
Dietary Consultation Note Consult date 11/14/24 Assessment: 29 y F referred for GERD w/o esophagitis, T2DM, binge eating disorder. Met with pt via telehealth. Pt kindly sent over document via portal of all current conditions, meds, supplements, and major questions she wanted to address. Would like to address questions first in this session. Also notes difficulty determining what to eat based on medical conditions and conflicting dietary advice. In addition to this document, pt also notes suspecting a potential histamine intolerance as well as possible gluten or dairy intolerance. Is nauseated on mounjaro sometimes, but this has been very helpful in reducing food noise. On and off diarrhea and constipation. Recently dx with fibromyalgia. Is in lots of pain, unable to cook or stand for long periods. Diet recall: Not hungry for breakfast noon- cheese (baby sosa) deli meat, orange, or protein powder drink 5-6 p- same thing as above, sometimes quesadilla 10p- same thing as above or sunchips water throughout day Ht: 5 ft 6 in Wt: 231 lb BMI: 37.3 UBW: - Nutrition Diagnosis: food and nutrition related knowledge deficit r/t multiple medical conditions with multiple recommended dietary patterns aeb questions list and reported uncertaintly around food products/food choices Interventions: -Balanced meals and snacks in line with myplate, Mediterranean style of eating and anti-inflammatory dietary patterns - provided handouts via email w/ pt permission on both of these styles of eating -Portion sizing -Addressed questions around [place] products, dietary patterns and hormone balance, hydration -Discussed eating schedule/frequency -Calorie and protein needs -Brainstormed an example meal option with plans to continue brainstorming further meal options, time limited this session Monitoring/Evaluations: f/u 3 wks Electronically Signed by: Domonique Linda 11/22/24 10:53 Clinical Dietitian [address] [address]
== END ==
PROVIDERS: PCP Family Medicine; Referring Provider Family Medicine
DX: K21.9 Gastro-esophageal reflux disease without esophagitis (principal); E11.9 Type 2 diabetes mellitus without complications; F50.819 Binge eating disorder, unspecified; Z68.37 Body mass index [BMI] 37.0-37.9, adult; Z71.3 Dietary counseling and surveillance
CPT/HCPCS: 97802

== ENCOUNTER → 2025-05-10 08:53 | Outpatient (CLI) | payer MEDICARE, MEDICAID, SELFPAY ==
[2025-03-27 13:34] VITALS: BMI 34.1
[2025-05-16 13:12] LABS: ANA Screen, IFA Positive (.)
== END ==
PROVIDERS: PCP Family Medicine; Referring Provider Family Medicine; Visit Provider Family Medicine
DX: R52 Pain, unspecified (principal)
CPT/HCPCS: 36415; 85651; 86038; 86140; 86200; 86430

== ENCOUNTER → 2025-06-23 16:40 | Outpatient (CLI) | payer MEDICARE, MEDICAID, SELFPAY ==
[2025-03-27 13:34] VITALS: BMI 34.1
== END ==
PROVIDERS: PCP Family Medicine; Visit Provider Nurse Practitioner Family
DX: N94.9 Unspecified condition associated with female genital organs and menstrual cycle (principal); R30.0 Dysuria
CPT/HCPCS: 81002; 87086; 87210